=== PATIENT | female | born 1960 | race Caucasian/White ===

== ENCOUNTER → 2019-07-20 13:36 | Outpatient (CLI) | payer MEDICAID, SELFPAY ==
--- NOTE | 2019-07-20 | US_ITS ---
PROCEDURE: MM DIG MAMM BI DX W/CAD CLINICAL INDICATION: rt breast abscess The COMPARISON: US BREAST RT COMPLETE from 07/20/2019 US BREAST LT COMPLETE from 07/20/2019 TECHNIQUE: Standard images are performed along with bilateral spot compression views and bilateral breast ultrasound. FINDINGS: Unfortunately, old films have been purged and are unavailable for review. Average fibroglandular tissue. Right breast: There is a persistent area of nodularity at 7 mm involving the upper inner aspect of the right breast. This area did not completely compress out but had a somewhat unusual appearance on the mL view somewhat curvilinear. Ultrasound failed to demonstrate a cystic nodule at this area. There is some thickening in the retroareolar region on the right. A cluster of calcifications that are noted in the medial aspect of the right breast which appear benign with central lucencies. Left breast: There is a well-circumscribed 12 mm subareolar nodule. Benign-appearing calcifications are present in the left breast. Small cluster of calcifications noted in the inferior medial aspect of the left breast which appear benign Right breast ultrasound: There was a persistent somewhat lobular area of isoechoic bessie of the just below the nipple on the right which upon further inspection appear to represent part of the nipple instead of a nodule. This was difficult to ascertain. No abscess was evident. Left breast ultrasound: There was a subareolar nodular density on the mammogram. At 12 o'clock behind the nipple there was a 1 cm well-circumscribed nodular area with some low level echoes. This appears benign and shows in hands through transmission of sound. IMPRESSION: There is an indeterminate nodule in the upper inner aspect of the right breast without a sonographic correlate. Recommend stereotactic biopsy for further evaluation. There are bilateral subareolar nodules which are probably benign. These do not appear to represent abscesses. Possible papillomas or fibroadenomas. There was question at 1 point during the study if these represented inverted nipples but was not felt to be the case. Fine-needle aspiration could be performed of these for further diagnosis. BI-RAD Category: 4 Suspicious Abnormality - Biopsy Considered bilateral FOLLOW-UP: BIO Biopsy Recommended Dictated by: Shay Berrios MD 07/21/2019 16:37 Electronically signed by Shay Berrios MD in [place] 07/21/2019 16:37
== END ==
PROVIDERS: PCP Internal Medicine; Visit Provider Surgery
DX: N61.1 Abscess of the breast and nipple (principal)
CPT/HCPCS: 76641; 77066

== ENCOUNTER → 2019-08-20 08:49 | Outpatient (CLI) | payer OTHER, SELFPAY ==
--- NOTE | 2019-08-20 | US_ITS ---
PROCEDURE: US FNA BREAST CLINICAL INDICATION: Bilateral abnormal breast ultrasound. Chronic drainage with abscess behind the right nipple COMPARISON: US BREAST RT COMPLETE from 07/20/2019 US BREAST LT COMPLETE from 07/20/2019 US FNA BREAST from 08/20/2019 FINDINGS: Following obtaining informed consent under aseptic conditions and local anesthesia with 1 percent buffered lidocaine fine needle aspiration is performed with sonographic guidance of the previously noted sonographic abnormalities in both retroareolar regions. The patient tolerated the procedure well without evidence of immediate complication. On the right there was minimal amount of grayish aspirate obtained. The hypoechoic area did appear to communicate with the skin surface. The minimal aspirate was sent for cytology and culture and sensitivity. Cytology of the right FNA: Atypical cells with focal spindle features are present FNA performed on the left without complication. The nodule was slightly smaller after the FNA on the left. Cytology of the left FNA: Negative for malignant cells IMPRESSION: Status post bilateral breast FNA in the retroareolar region as described above. No immediate complication. Cytology on the right was atypical. Cytology on the left was negative for malignant cells. Dictated by: Shay Berrios MD 08/28/2019 08:56 Electronically signed by Shay Berrios MD in [place] 08/28/2019 08:56
--- NOTE | 2019-08-20 08:55 | MM_ITS ---
PROCEDURE: MM STEREOTACTIC LOC RT CLINICAL INDICATION: Rt breast lesion COMPARISON: MM DIG MAMM BI DX W/CAD from 07/20/2019 US FNA BREAST from 08/20/2019 TECHNIQUE: Following obtaining informed consent and time-out procedures, the patient was placed in the stereotactic unit and the area of interest localized per routine protocol. Under aseptic conditions and local anesthesia with 1 percent lidocaine and deeper anesthesia with lidocaine mixed with epinephrine, skin sky was performed and mammography needle inserted and deemed to be in satisfactory position. Multiple mammotome E cores were obtained with post biopsy images showing defect in the expected location of the biopsy. A sterile non ferromagnetic clip was then placed and deemed to be in satisfactory position. The patient tolerated the procedure well without evidence of immediate complications and left radiology suite in stable condition. FINDINGS: Pathology: Stromal fibrosis and focal fat necrosis. No atypia or carcinoma Post biopsy mammogram demonstrates post biopsy changes involving the medial and upper aspect of the right breast in the area of the previously noted abnormality with clips present. IMPRESSION: Successful stereotactic directed biopsy of the right breast showing benign findings. Recommend six-month mammographic follow-up of the right breast per routine protocol. BI-RAD Category: 2 Benign Finding(s) FOLLOW-UP: 6M 6Month Follow-up (A letter has been sent to the patient regarding results of the study.) Dictated by: Shya Berrios MD 08/28/2019 08:47 Electronically signed by Shay Berrios MD in [place] 08/28/2019 08:47
--- NOTE | 2019-08-20 12:00 | MM_ITS ---
PROCEDURE: MM CLIP PLACEMENT RT CLINICAL INDICATION: RT BREAST MASS COMPARISON: MM DIG MAMM BI DX W/CAD from 07/20/2019 MM STEREOTACTIC LOC RT from 08/20/2019 TECHNIQUE: Standard CC and MLO images were obtained. R2 CAD reviewed. FINDINGS: Post biopsy changes are present in the upper inner aspect of the right breast with clip at that region which is the area of the previously noted mammographic abnormality. IMPRESSION: BI-RAD Category: 2 Benign Finding(s) FOLLOW-UP: 6M 6Month Follow-up (A letter has been sent to the patient regarding results of the study.) Dictated by: Shay Berrios MD 08/21/2019 09:10 Electronically signed by Shay Berrios MD in [place] 08/28/2019 08:50
== END ==
PROVIDERS: PCP Internal Medicine; Visit Provider Surgery
DX: N63.10 Unspecified lump in the right breast, unspecified quadrant (principal); N61.1 Abscess of the breast and nipple
CPT/HCPCS: 19081; 76942; 77065; 87070; 87205; 88305

== ENCOUNTER → 2021-10-20 16:54 | Outpatient (CLI) | payer OTHER, SELFPAY ==
[2021-10-20 17:32] LABS: Basophils # 0.1 K/mm3 (0-0.2); Basophils % 0.7 % (0.1-2.0); Eosinophils # 0.3 K/mm3 (0.0-0.4); Eosinophils % 2.4 % (0.1-12.0); Hematocrit 45.2 % (37.0-47.0); Hemoglobin 15.4 g/dL (12.2-16.2); Lymphocytes # 2.7 K/mm3 (0.7-4.5); Lymphocytes % 24.2 % (10-50); Mean Corpuscular Hemoglobin 32.2 pg (27.0-31.2); Mean Corpuscular Volume 94.6 fl (81-99); Mean Platelet Volume 11.6 fl (7.4-10.4); Monocytes # 0.7 K/mm3 (0.1-1.0); Monocytes % 6.2 % (1.7-9.3); Neutrophils # 7.4 K/mm3 (1.8-7.8); Neutrophils % 66.5 % (37.0-80.0); Platelet Count 295 K/mm3 (142-424); Red Blood Count 4.78 M/mm3 (4.20-5.40); Red Cell Distribution Width 12.4 % (11.5-17.5); White Blood Count 11.2 K/mm3 (4.8-10.8)
[2021-10-20 17:40] LABS: Creatinine,Urine Random 136 mg/dL (Not Estab.)
[2021-10-20 17:44] LABS: Microalbumin/Creatinine Ratio 7.1
[2021-10-20 17:58] LABS: Erythrocyte Sedimentation Rate 25 mm/hr (0-30)
[2021-10-20 18:12] LABS: Hemoglobin A1C 7.3 % (4.0-6.0)
[2021-10-20 18:29] LABS: Alanine Aminotransferase 22 U/L (12-78); Albumin Level 4.2 g/dl (3.5-5.0); Albumin/Globulin Ratio 1.4 (1.1-1.8); Alkaline Phosphatase 115 U/L (38-126); Anion Gap 11.9 mEq/L (5-15); Aspartate Amino Transferase 27 U/L (14-36); Bilirubin,Total 0.5 mg/dl (0.2-1.3); Blood Urea Nitrogen 12 mg/dl (7-17); Calcium 9.3 mg/dl (8.4-10.2); Carbon Dioxide 29 mmol/L (22.0-30.0); Chloride 101 mmol/L (98-107); Chol/HDL Ratio 5.4 (1-3.5); Cholesterol 253 mg/dl (140-200); Estimated Glomerular Filt Rate 101 ml/min (>60); GFR (African American) 122 ML/MIN (>60); Globulin 3.1 g/dL (1.3-3.2); Glucose 108 mg/dl (74-100); HDL Cholesterol 47 mg/dl (40-60); Potassium 4.9 mmoL/L (3.5-5.1); Sodium 137 mmol/L (136-145); Total Protein,Serum 7.3 g/dl (6.3-8.2); Triglycerides 153 mg/dl (30-150); VLDL Cholesterol 31 mg/dL (0-40)
[2021-10-20 18:40] LABS: Direct LDL Cholesterol 190.12 mg/dL (100-129)
[2021-10-20 19:34] LABS: Vitamin B12 409 pg/mL (239-931)
[2021-10-20 19:36] LABS: Folate 5.87 ng/mL
== END ==
PROVIDERS: Visit Provider Internal Medicine
DX: E11.42 Type 2 diabetes mellitus with diabetic polyneuropathy (principal); E78.5 Hyperlipidemia, unspecified; I10 Essential (primary) hypertension; Z79.84 Long term (current) use of oral hypoglycemic drugs
CPT/HCPCS: 80053; 80061; 82043; 82570; 82607; 82746; 83036; 85025; 85651

== ENCOUNTER → 2022-04-23 12:29 | Outpatient (CLI) | payer OTHER, SELFPAY ==
[2022-04-23 14:04] LABS: Chloride 104 mmol/L (98-107); Sodium 137 mmol/L (136-145)
[2022-04-23 14:05] LABS: Potassium 4.5 mmoL/L (3.5-5.1)
[2022-04-23 14:07] LABS: Alanine Aminotransferase 29 U/L (12-78); Albumin/Globulin Ratio 1.3 (1.1-1.8); Alkaline Phosphatase 120 U/L (38-126); Anion Gap 10.5 mEq/L (5-15); Aspartate Amino Transferase 29 U/L (14-36); Bilirubin,Total 0.5 mg/dl (0.2-1.3); Blood Urea Nitrogen 8 mg/dl (7-17); Carbon Dioxide 27 mmol/L (22.0-30.0); Cholesterol 286 mg/dl (140-200); Estimated Glomerular Filt Rate 124 ml/min (>60); GFR (African American) 150 ML/MIN (>60); Globulin 3.2 g/dL (1.3-3.2); Total Protein,Serum 7.2 g/dl (6.3-8.2); Triglycerides 150 mg/dl (30-150); VLDL Cholesterol 30 mg/dL (0-40)
[2022-04-23 14:08] LABS: Calcium 9.1 mg/dl (8.4-10.2); Glucose 132 mg/dl (74-100); HDL Cholesterol 41 mg/dl (40-60)
[2022-04-23 14:18] LABS: Direct LDL Cholesterol 208.27 mg/dL (100-129)
[2022-04-23 15:04] LABS: Hemoglobin A1C 8.1 % (4.0-6.0)
== END ==
PROVIDERS: PCP Internal Medicine; Visit Provider Internal Medicine
DX: E11.42 Type 2 diabetes mellitus with diabetic polyneuropathy (principal); E78.5 Hyperlipidemia, unspecified; I10 Essential (primary) hypertension; Z79.84 Long term (current) use of oral hypoglycemic drugs
CPT/HCPCS: 80053; 80061; 83036

== ENCOUNTER 2022-06-16 10:50 | Emergency (ER) | payer OTHER, SELFPAY ==
--- NOTE | 2022-06-16 11:30 | HMH.EDUTC ---
[facility] [place] Clinical Impression: Strep throat Disposition: Home, Self-Care Condition on Discharge: Good Instructions: Strep Throat, DI for Strep Throat Additional Instructions: Drink plenty of fluids. Take tylenol or ibuprofen for pain or fever. Take the medications as directed. Follow up with your regular doctor. GO TO THE ER FOR ANY WORSENING SYMPTOMS Throw your tooth brush away and get a new one. Prescriptions: Amoxicillin [Amoxicillin 875MG Tab] 875 mg PO Q12H #20 tab Transmission Status: Received by [facility] methylPREDNISolone [Medrol] 4 mg PO DIRECTED 6 Days #21 packet Transmission Status: Received by [facility] Nystatin [Nystatin Susp 500,000 Units/5mL Udc] 5 ml PO QID 10 Days #200 ml Transmission Status: Received by [facility] Referrals: Luis Antonio Gorman MD [Primary Care Provider] - Time of Disposition: 11:55 Medical Decision Making - Medical Records Medical records reviewed: No: I reviewed the patient's medical records. - Jayden Inquiry Pt receiving controlled substance: No Vital Signs: 06/16/22 11:39 06/16/22 11:57 Temperature 97.7 F 97.7 F Temperature Source Oral Pulse Rate 90 Pulse Rate [Left] 90 Respiratory Rate 16 16 Blood Pressure 166/97 H Blood Pressure [Right Arm] 166/97 H Blood Pressure Mean [Right Arm] 120 02 Sat by Pulse Oximetry 97 - Lab Data Lab results reviewed: Yes: I reviewed the patient's lab results. Lab Results 06/16/22 11:30: Strep Scn Rapid Clinic Positive A [facility] [place] HPI - General Stated complaint: Sore throat Time Seen by Provider: 06/16/22 11:30 - History of Present Illness Provider Complaint: She c/o sore throat for the past 2 days. - Related Data Home Medications Medication Instructions Recorded Confirmed rosuvastatin 20 mg tablet 20 mg PO ONCE 02/18/18 09/01/19 metformin 500 mg tablet 500 mg PO BID 07/28/19 09/01/19 naproxen sodium 220 mg tablet 220 mg PO Q8H 07/28/19 09/01/19 Previous Rx's Medication Instructions Recorded Amoxicillin [Amoxicillin 875MG 875 mg PO Q12H #20 tab 06/16/22 Tab] Nystatin [Nystatin Susp 500,000 5 ml PO QID 10 Days #200 ml 06/16/22 Units/5mL Udc] methylPREDNISolone [Medrol] 4 mg PO DIRECTED 6 Days #21 06/16/22 packet Allergies Allergy/AdvReac Type Severity Reaction Status Date / Time Sulfa (Sulfonamide Allergy Unknown SICK Verified 06/16/22 11:41 Antibiotics) [facility] History - Hepatitis A Screen Attestation statement:: This patient has been screened for Hepatitis A risk factors. I have reviewed the patient's past medical history: Yes Medical History: Reports:: Hyperlipidemia Denies:: Diabetes Mellitus Type 1, Diabetes Mellitus Type 2, Internal Pacemaker, Lung Disease, Seizures Laterality Cases: Bilateral: Breast Biopsy, Other Other Surgeries: Yes: Cholecystectomy, Other. No: Pacemaker Comment: rt breast excision - Social History Smoking Status: Current every day smoker Alcohol Intake: never Substance Use Type: denies use Occupational Status: retired Family Hx:: No significant family history ROS Obtained: Yes All systems reviewed & no additional complaints - Constitutional Constitutional: Reports as per HPI - Eyes Eyes: Denies eye discharge - ENT Ears, Nose, Mouth, and Throat: Reports as per HPI - Cardiovascular Cardiovascular: Denies chest pain - Respiratory Respiratory: Denies chest congestion - Gastrointestinal Gastrointestingal: Reports: nausea. Denies: abdominal pain, diarrhea, vomiting Physical Exam - General General appearance: alert, in no apparent distress - Head Head exam: atraumatic, normocephalic, normal inspection - Eye Eye exam: Present: normal appearance, PERRL, EOMI - ENT ENT exam: Present: mucous membranes moist, normal external ear exam - Expanded ENT Exam TM/Canal exam: Bilateral TM: erythema, bulging Nose exam: Absent: sinus tenderness Nasal speculum e
[2022-06-16 11:38] LABS: UTC Strep Screen (Rapid) Positive (Negative)
[2022-06-16 11:39] VITALS: BP 166/97; PULSE 90; RESP 16; TEMP 36.5; O2SAT 97; BMI 28.6
[2022-06-16 11:57] VITALS: BP 166/97; PULSE 90; RESP 16; TEMP 36.5
== END 2022-06-16 12:07 | disposition home or self-care (01) ==
PROVIDERS: Emergency Provider Nurse Practitioner Family; PCP Internal Medicine
DX: J02.0 Streptococcal pharyngitis (principal); F17.200 Nicotine dependence, unspecified, uncomplicated
CPT/HCPCS: 87880; 99212; G0463

== ENCOUNTER → 2023-06-14 11:24 | Outpatient (CLI) | payer OTHER, MEDICARE, SELFPAY ==
[2023-06-14 13:05] LABS: Creatinine,Urine Random 51 mg/dL (Not Estab.)
[2023-06-14 13:09] LABS: Basophils # 0.1 K/mm3 (0-0.2); Basophils % 0.4 % (0.1-2.0); Eosinophils # 0.1 K/mm3 (0.0-0.4); Eosinophils % 0.5 % (0.1-12.0); Lymphocytes # 1.8 K/mm3 (0.7-4.5); Mean Corpuscular HGB Conc 31.4 g/dL (31.8-35.4); Mean Corpuscular Hemoglobin 30.5 pg (27.0-31.2); Mean Corpuscular Volume 97.3 fl (81-99); Mean Platelet Volume 9.9 fl (7.4-10.4); Monocytes # 0.6 K/mm3 (0.1-1.0); Monocytes % 4.2 % (1.7-9.3); Neutrophils # 12.4 K/mm3 (1.8-7.8); Neutrophils % 82.9 % (37.0-80.0); Platelet Count 267 K/mm3 (142-424); Red Blood Count 5.24 M/mm3 (4.20-5.40); Red Cell Distribution Width 12.7 % (11.5-17.5); White Blood Count 14.9 K/mm3 (4.8-10.8)
[2023-06-14 13:10] LABS: Microalbumin < 6.000 mg/L (0-16.7)
[2023-06-14 13:37] LABS: Chloride 105 mmol/L (98-107); Potassium 5.3 mmoL/L (3.5-5.1); Sodium 141 mmol/L (136-145)
[2023-06-14 13:40] LABS: Alanine Aminotransferase 21 U/L (12-78); Albumin/Globulin Ratio 1.1 (1.1-1.8); Alkaline Phosphatase 137 U/L (38-126); Anion Gap 13.3 mEq/L (5-15); Aspartate Amino Transferase 24 U/L (14-36); Bilirubin,Total 0.5 mg/dl (0.2-1.3); Blood Urea Nitrogen 14 mg/dl (7-17); Carbon Dioxide 28 mmol/L (22.0-30.0); Cholesterol 297 mg/dl (140-200); Estimated Glomerular Filt Rate 124 ml/min (>60); GFR (African American) 150 ML/MIN (>60); Globulin 3.6 g/dL (1.3-3.2); Total Protein,Serum 7.6 g/dl (6.3-8.2); Triglycerides 193 mg/dl (30-150); VLDL Cholesterol 39 mg/dL (0-40)
[2023-06-14 13:41] LABS: Calcium 9.7 mg/dl (8.4-10.2); Chol/HDL Ratio 6.2 (1-3.5); Glucose 94 mg/dl (74-100); HDL Cholesterol 48 mg/dl (40-60)
[2023-06-14 13:51] LABS: Direct LDL Cholesterol 190.36 mg/dL (100-129)
== END ==
PROVIDERS: PCP Internal Medicine; Visit Provider Internal Medicine
DX: E11.42 Type 2 diabetes mellitus with diabetic polyneuropathy (principal); I10 Essential (primary) hypertension; E78.5 Hyperlipidemia, unspecified; Z78.9 Other specified health status; Z79.84 Long term (current) use of oral hypoglycemic drugs
CPT/HCPCS: 80053; 80061; 82043; 82570; 83036; 85025

== ENCOUNTER 2023-06-27 00:55 | Emergency (ER) | payer MEDICARE, SELFPAY ==
[2023-06-27 01:11] VITALS: BP 126/78; PULSE 99; RESP 18; TEMP 36.7; O2SAT 99; BMI 29.7
--- NOTE | 2023-06-27 01:23 | HMH.EDGENADL ---
Discharge Plan Disposition Patient Disposition: Home, Self-Care Condition: Good Prescriptions Prescriptions: New ondansetron HCl 4 mg tablet 4 mg PO Q8H PRN (Reason: nausea and vomiting) 5 Days Qty: 30 0RF No Action rosuvastatin 20 mg tablet 20 mg PO ONCE metformin 500 mg tablet 500 mg PO BID naproxen sodium [Aleve] 220 mg tablet 220 mg PO Q8H amoxicillin 875 MG tablet 875 mg PO Q12H Qty: 20 0RF methylprednisolone 4 MG tablets,dose pack 4 mg PO DIRECTED 6 Days Qty: 21 0RF nystatin 500,000 UNIT/5 ML suspension 5 ml PO QID 10 Days Qty: 200 0RF Referrals Follow up/Referrals: Luis Antonio Gorman MD [Primary Care Provider] - See instructions Clinical Impressions Clinical Impression: Leukocytosis, Nausea vomiting and diarrhea Instructions Patient Instructions: DI for Acute Abdominal Pain Discharge ED Provider: Ramesh Medina General Adult HPI General Chief complaint: Abdominal Pain Stated complaint: took sugar shot, abd pain, diarrhea Time Seen by Provider: 06/27/23 01:02 Mode of Arrival: Ambulatory Source of Information: Patient Limitations: No Limitations Description of Symptoms (Recalled from ER Triage Doc. by RN): pt states she had her first dose of ozempic on 06/24. pt states ever since she has been sick. pt c/o N/V/D, abd pain, tenderness bilaterally in her lower quads and epigasteric areas. pt states she spoke with Dr. Gorman office yesterday and he was going to call her in [place] but she has not picked it up yet. History of Present Illness HPI narrative: 63-year-old female history of type 2 diabetes presents with abdominal pain nausea vomiting dry heaves and diarrhea since Saturday when she received her first dose of Ozempic. She reports I am never doing that again . She also reports mild abdominal distention and feels like she is full of gas. She denies any fevers chills. Reports that she is able to tolerate p.o. but only a little bit. Related Data Home Medications Medication Instructions Recorded Confirmed rosuvastatin 20 mg tablet 20 mg PO ONCE Cholesterol 02/18/18 09/01/19 metformin 500 mg tablet 500 mg PO BID 07/28/19 09/01/19 naproxen sodium 220 mg tablet 220 mg PO Q8H 07/28/19 09/01/19 (Deyanira) Previous Rx's Medication Instructions Recorded amoxicillin 875 mg tablet 875 mg PO Q12H #20 tabs 06/16/22 methylprednisolone 4 mg tablets in 4 mg PO DIRECTED 6 days #21 06/16/22 a dose pack packets nystatin 100,000 unit/mL oral 5 ml PO QID 10 days #200 mL 06/16/22 suspension ondansetron HCl 4 mg tablet 4 mg PO Q8H PRN nausea and 06/27/23 vomiting 5 days #30 tabs Allergies Allergy/AdvReac Type Severity Reaction Status Date / Time Sulfa (Sulfonamide Allergy Unknown SICK Verified 06/16/22 11:41 Antibiotics) [facility] Disclaimer: The information contained in this section may have been updated after the patient was seen, as this information can be updated by other users. Surgical History (Updated 06/27/23 @ 01:16 by Leelee Hendrix RN) Hx of cholecystectomy Social History Smoking Status: Current every day smoker alcohol intake: never substance use type: denies use current occupational status: retired Travel in the last 8 weeks: None caffeine: No ROS Obtained: Yes All systems reviewed & no additional complaints except as documented Physical Exam General General appearance: alert and in no apparent distress Head Head exam: atraumatic and normocephalic Eye Eye exam: Present normal appearance, PERRL and EOMI ENT ENT exam: Present normal oropharynx and normal external ear exam Neck Neck exam: Present normal inspection and full ROM Chest Chest inspection: Present normal inspection and symmetric chest wall rise; Absent tenderness Respiratory Respiratory exam: Present normal lung sounds bilaterally; Absent respiratory distress Cardiovascular Cardiovascular exam: Present regular rate and normal rhythm Abdominal
[2023-06-27 01:29] LABS: Basophils # 0.1 K/mm3 (0-0.2); Basophils % 0.3 % (0.1-2.0); Eosinophils # 0.2 K/mm3 (0.0-0.4); Eosinophils % 0.9 % (0.1-12.0); Hematocrit 51.4 % (37.0-47.0); Hemoglobin 16.5 g/dL (12.2-16.2); Lymphocytes # 2.1 K/mm3 (0.7-4.5); Lymphocytes % 12.3 % (10-50); Mean Corpuscular Hemoglobin 30.8 pg (27.0-31.2); Mean Corpuscular Volume 96.1 fl (81-99); Mean Platelet Volume 8.4 fl (7.4-10.4); Monocytes % 5.8 % (1.7-9.3); Neutrophils # 13.9 K/mm3 (1.8-7.8); Neutrophils % 80.6 % (37.0-80.0); Platelet Count 251 K/mm3 (142-424); Red Blood Count 5.34 M/mm3 (4.20-5.40); Red Cell Distribution Width 12.5 % (11.5-17.5); White Blood Count 17.2 K/mm3 (4.8-10.8)
[2023-06-27 01:31] LABS: Alanine Aminotransferase 53 U/L (12-78); Albumin Level 4.3 g/dl (3.5-5.0); Albumin/Globulin Ratio 1.1 (1.1-1.8); Alkaline Phosphatase 117 U/L (38-126); Anion Gap 15.6 mEq/L (5-15); Aspartate Amino Transferase 37 U/L (14-36); Bilirubin,Total 0.9 mg/dl (0.2-1.3); Blood Urea Nitrogen 10 mg/dl (7-17); Calcium 9.2 mg/dl (8.4-10.2); Carbon Dioxide 23 mmol/L (22.0-30.0); Chloride 103 mmol/L (98-107); Creatinine Clearance Estimated 72 mL/min (50-200); Estimated Glomerular Filt Rate 100 ml/min (>60); GFR (African American) 121 ML/MIN (>60); Globulin 3.9 g/dL (1.3-3.2); Glucose 145 mg/dl (74-100); Lipase 48 U/L (23-300); MANUAL DIFFERENTIAL MANUAL DIFFERENTIAL (MANUAL DIFF); Potassium 3.6 mmoL/L (3.5-5.1); Sodium 138 mmol/L (136-145); Total Protein,Serum 8.2 g/dl (6.3-8.2)
[2023-06-27 01:45] VITALS: BP 110/64; PULSE 88; RESP 16; TEMP 36.9
[2023-06-27 02:11] LABS: Lymphocytes % 14 % (10-50); Monocytes % 1 % (2-9); Neutrophils % 84 % (42-76); Platelet Estimate Normal; RBC Morphology Normal; Total Cells Counted 100
== END 2023-06-27 01:52 | disposition home or self-care (01) ==
PROVIDERS: Emergency Provider Emergency Medicine; PCP Internal Medicine
DX: R10.9 Unspecified abdominal pain (principal); R11.2 Nausea with vomiting, unspecified; R19.7 Diarrhea, unspecified; D72.829 Elevated white blood cell count, unspecified; E11.9 Type 2 diabetes mellitus without complications; F17.210 Nicotine dependence, cigarettes, uncomplicated; Z79.84 Long term (current) use of oral hypoglycemic drugs
CPT/HCPCS: 80053; 83690; 85007; 85025; 96361; 96374; 99284; J2405

== ENCOUNTER → 2023-10-07 10:37 | Outpatient (CLI) | payer MEDICARE, SELFPAY ==
--- NOTE | 2023-10-07 10:41 | XR_ITS ---
FINAL REPORT CLINICAL HISTORY: LBP W/SCIATICA COMPARISON: None FINDINGS: 5 views of the lumbar spine were obtained. There is no evidence of fracture or dislocation. The vertebral alignment is normal. Moderate degenerative change is present with multilevel osteophytes. Vascular calcifications are identified. IMPRESSION: Moderate degenerative change is present without acute bony abnormality. Reviewed, Interpreted and Dictated by Fabián Sanchez III, MD Transcribed by Aminata Melissa Authenticated and [facility]
== END ==
PROVIDERS: PCP Internal Medicine; Visit Provider Internal Medicine
DX: M54.41 Lumbago with sciatica, right side (principal)
CPT/HCPCS: 72110

== ENCOUNTER 2024-04-17 08:58 | Emergency (ER) | payer MEDICARE, SELFPAY ==
[2024-04-17] VITALS (8 sets, daily range): BP systolic 151–192; BP diastolic 91–113; PULSE 79–89; RESP 18; TEMP 36.6–36.9; O2SAT 95–98; BMI 27.6
--- NOTE | 2024-04-17 09:03 | ED_ITS ---
Discharge Plan Disposition Patient Disposition: Home, Self-Care Condition: Good Prescriptions Prescriptions: No Action rosuvastatin 20 mg tablet 20 mg PO ONCE metformin 500 mg tablet 500 mg PO BID naproxen sodium [Aleve] 220 mg tablet 220 mg PO Q8H dapagliflozin propanediol [Farxiga] 5 mg tablet 5 mg PO DAILY Qty: 30 2RF prednisone 10 mg tablet 10 mg PO DIRECTED Qty: 32 0RF Rx Instructions: see taper instructions: 4 tabs po qam x 5 days; 3 tabs po qam x 2 days; 2 tabs po qam x 2 days; 1 tab po qam x 2 days; then stop ondansetron HCl 4 mg tablet 4 mg PO Q8H PRN (Reason: nausea and vomiting) 5 Days Qty: 30 0RF amoxicillin 875 MG tablet 875 mg PO Q12H Qty: 20 0RF methylprednisolone 4 MG tablets,dose pack 4 mg PO DIRECTED 6 Days Qty: 21 0RF nystatin 500,000 UNIT/5 ML suspension 5 ml PO QID 10 Days Qty: 200 0RF Referrals Follow up/Referrals: Luis Antonio Gorman MD [Primary Care Provider] - See instructions Activity Restrictions/Add. Instructions Additional Instructions/Restrictions: As we discussed, we did a trigger point injection with numbing medication that should continue to last for several hours. There was also a small amount of steroid in there, for this reason, please keep a very close eye on your blood sugar and stay hydrated. Please also continue to monitor your blood pressure closely. Please return with any new or worsening symptoms. Clinical Impressions Clinical Impression: Acute neck pain Discharge ED Provider: Evans Florentino General Adult HPI General Chief complaint: PAIN Stated complaint: neck pain Time Seen by Provider: 04/17/24 09:03 History of Present Illness HPI narrative: The patient presents with a chief complaint of left-sided neck pain, which has been an ongoing issue for years. The pain is described as nagging and dull, located in the middle of the neck and radiating down the shoulder. She reports that the pain is exacerbated by sleeping with the neck in a crooked position. There is no numbness, tingling, or weakness in the arms or legs, and the pain does not shoot down the arm. The patient has a history of receiving steroid injections for this issue, which have been helpful in the past. She also takes prednisone, but only in small doses (5-10 mg) due to experiencing a \ rushing\ sensation when taking larger amounts. The prednisone typically lasts for two to three months. The patient has taken her usual medications today, including two ibuprofens, ananda apentin, half a prednisone tablet, and some vitamins. She also has a history of hypertension and is on losartan, which she takes at 11 o'clock. Additionally, the patient has a diagnosis of diabetes. Please note that above description of symptoms, in this electronic medical record under categorization of recalled from ER triage doctor by RN are reflective of an initial nursing assessment, however, is not reflective of my full history and physical exam that was personally taken and clarified. Consequentially, this preceding description of symptoms, which may include the patient's categorized chief complaint in the EMR, do not reflect my personal clinical impression, and the ultimate description of history of present illness and patient stated complaints should be deferred to this section of the note. Unless stated otherwise or congruent with this section of the note, additional signs, symptoms, or incongruence should be interpreted as inaccurate with my clinical impression. Related Data Home Medications Medication Instructions Recorded Confirmed rosuvastatin 20 mg tablet 20 mg PO ONCE Cholesterol 02/18/18 09/01/19 metformin 500 mg tablet 500 mg PO BID 07/28/19 09/01/19 naproxen sodium 220 mg tablet 220 mg PO Q8H 07/28/19 09/01/19 (Aleve) Previous Rx's Medication Instructions Recorded amoxicillin 875 mg tablet 875 mg PO Q12H #20 tabs 06/16/22 methylprednisolone 4 mg tablets in 4 mg PO DIRECTED 6 days #21 06/16/22 a dose pack packets nystatin 100,000 unit/mL oral 5 ml PO QID 10 days #200 mL 06/16/22 suspension ondansetron HCl 4 mg tablet 4 mg PO Q8H PRN nausea and 06/27/23 vomiting 5 days #30 tabs dapagliflozin propanediol 5 mg 5 mg PO DAILY #30 tabs 04/07/24 tablet (Farxiga) prednisone 10 mg tablet 10 mg PO DIRECTED #32 tabs 04/13/24 Allergies Allergy/AdvReac Type Severity Reaction Status Date / Time Sulfa (Sulfonamide Allergy Unknown SICK Verified 06/16/22 11:41 Antibiotics) [facility] Disclaimer: The information contained in this section may have been updated after the patient was seen, as this information can be updated by other users. Surgical History (Updated 06/27/23 @ 01:16 by Leelee Hendrix RN) Hx of cholecystectomy Social History Smoking Status: Current every day smoker alcohol intake: never substance use type: denies use current occupational status: retired Travel in the last 8 weeks: None caffeine: No ROS Obtained: Yes other As per HPI Physical Exam General General appearance: alert and in no apparent distress Head Head exam: atraumatic and normocephalic Eye Eye exam: Present normal appearance Neck Neck exam: Present normal inspection Chest Chest inspection: Present normal inspection and symmetric chest wall rise Respiratory Respiratory exam: Present normal lung sounds bilaterally; Absent respiratory distress Cardiovascular Cardiovascular exam: Present regular rate and normal rhythm Abdominal Exam Abdominal exam: Present soft Neurological Exam Neurological exam: Present alert and oriented X3 Psychiatric Psychiatric exam: Present normal affect and normal mood Skin Skin exam: Present warm and dry Other Other exam information: Left-sided cervicals paraspinal tenderness to palpation, no overt midline cervical spinal tenderness to palpation, full strength and sensation in bilateral upper extremities. Medical Decision Making Medical Records Medical records reviewed: Yes I reviewed the patient's medical records. Jayden Inquiry Pt receiving controlled substance: No Vital Signs: 04/17/24 09:00 04/17/24 09:15 04/17/24 09:31 Temperature 98 F Temperature Source Oral Pulse Rate 82 86 Pulse Rate [Right] 89 Respiratory Rate 18 Blood Pressure 192/98 H 151/91 H Blood Pressure [Right Arm] 184/113 H Blood Pressure Mean Blood Pressure Mean [Right Arm] 136 02 Sat by Pulse Oximetry 98 97 97 Oxygen Delivery Method Room Air 04/17/24 09:45 04/17/24 10:00 04/17/24 10:15 Temperature Temperature Source Pulse Rate 79 79 Pulse Rate [Right] Respiratory Rate Blood Pressure 151/99 H 158/93 H Blood Pressure [Right Arm] Blood Pressure Mean 116 Blood Pressure Mean [Right Arm] 02 Sat by Pulse Oximetry 96 95 Oxygen Delivery Method 04/17/24 10:30 04/17/24 10:47 Temperature 98.4 F Temperature Source Oral Pulse Rate 79 84 Pulse Rate [Right] Respiratory Rate 18 Blood Pressure 161/99 H 158/93 H Blood Pressure [Right Arm] Blood Pressure Mean Blood Pressure Mean [Right Arm] 02 Sat by Pulse Oximetry 96 Oxygen Delivery Method Room Air Orders (Tests/Meds): ED MEDICATIONS Discontinued Medications Generic Name Dose Route Start Last Admin Trade Name Magdiel PRN Reason Stop Dose Admin Bupivacaine HCl 10 mg 04/17/24 09:19 04/17/24 09:36 Bupivacaine 0.25% 10ml Inj IJ 04/17/24 09:20 10 mg ONCE ONE Administration Dexamethasone Sodium Phosphate 4 mg 04/17/24 09:19 04/17/24 09:31 Dexamethasone 4mg/Ml 1ml Vial IM 04/17/24 09:20 4 mg ONCE ONE Administration Irbesartan 75 mg 04/17/24 09:19 04/17/24 10:03 Irbesartan 75mg Tablet PO 04/17/24 09:20 Not Given ONCE ONE Medical Decision Narrative: Patient with history and exam per above presenting for evaluation of paraspinal neck pain Diagnoses considered include radiculopathy, muscle strain, muscle sprain, no clinical evidence of fracture or acute neurologic deficit Patient was treated with trigger point injection with complete resolution of symptoms upon repeat evaluation. My clinical impression at this time is most consistent with acute on chronic paraspinal muscle pain I discussed my clinical impression with patient and answered all questions. At this time, the evidence for any other entities in the differential is insufficient to warrant any further testing or ED observation. This was explained to the patient. The patient was advised that persistent or worsening symptoms require further evaluation. I confirmed the patient's understanding of this discussion. Procedures Miscellaneous Procedure Procedure Performed: Trigger point injection was performed using 10 mL of 0.25% bupivacaine as well as 4 mg dexamethasone, the area was prepped and draped in usual sterile fashion. Point of maximal tenderness was identified. The muscle belly was palpated with visualization and aspiration of injection into muscle. Patient tolerated the procedure well. No immediate complications. Critical Care Critical Care Time Critical Care Time: No
[2024-04-17] MEDS: DEXAMETHASONE 4MG/ML 1ML VIAL 4 MG IM (09:31)
--- NOTE | 2024-04-17 09:32 | PC.NURSE ---
fsbs 214
--- NOTE | 2024-04-17 09:33 | PC.NURSE ---
FSBS is 214 at this time.
[2024-04-17] MEDS: BUPIVACAINE 0.25% 10ML INJ 10 MG IJ (09:36)
--- NOTE | 2024-04-17 10:20 | PC.NURSE ---
Dr. Florentino at bedside
== END 2024-04-17 10:51 | disposition home or self-care (01) ==
PROVIDERS: Emergency Provider Emergency Medicine; PCP Internal Medicine
DX: M53.82 Other specified dorsopathies, cervical region (principal); I10 Essential (primary) hypertension; E11.9 Type 2 diabetes mellitus without complications; Z79.84 Long term (current) use of oral hypoglycemic drugs; F17.210 Nicotine dependence, cigarettes, uncomplicated
CPT/HCPCS: 20552; 99284; J1100

== ENCOUNTER 2025-03-18 10:47 | Outpatient (CLI) | payer MEDICARE, SELFPAY | END 2025-03-18 23:59 | disposition home or self-care (01) | LOC: LAB.DROPOF 03-19 11:40 | PROVIDERS: PCP Nurse Practitioner; Visit Provider Nurse Practitioner | DX: R35.0 Frequency of micturition (principal) | CPT/HCPCS: 87086; 87088 ==

== ENCOUNTER 2025-03-29 10:27 | Outpatient (CLI) | payer MEDICARE, SELFPAY | END 2025-03-29 23:59 | disposition home or self-care (01) | LOC: LAB.DROPOF 03-30 10:29 | PROVIDERS: PCP Internal Medicine; Visit Provider Student in an Organized Health Care Education/Training Program | DX: R30.0 Dysuria (principal); N39.0 Urinary tract infection, site not specified; B96.20 Unspecified Escherichia coli [E. coli] as the cause of diseases classified elsewhere | CPT/HCPCS: 87086; 87088; 87186 ==

== ENCOUNTER 2025-03-30 08:12 | Observation (INO) | payer MEDICARE, OTHER, SELFPAY ==
[2025-03-30] VITALS (13 sets, daily range): BP systolic 109–144; BP diastolic 72–95; PULSE 80–119; RESP 13–20; TEMP 36.3–36.8; O2SAT 80–98; BMI 27.4; BMI 26.7
--- NOTE | 2025-03-30 08:21 | ECG_ITS ---
APPROVED REPORT Exam: Resting ECG HR:114 bpm ECG Measurements Heart Rate 114 AXES SC 156 P 75 QRSd 93 QRS 84 QT 340 T 55 QTc 407 Conclusion SINUS TACHYCARDIA Electronically signed by : JAN MARTIN, 03/31/2025 08:14:57
[2025-03-30 08:40] LABS: Lactate Venous 1.5 mmol/L (0.4-2.0); VBG Base Excess -2.7 mmol/L (-2.4-2.3); VBG HCO3 23.3 mmol/L (23-30); VBG Oxygen Saturation 42.7 % (50-70); VBG PCO2 46.1 mmol/L (35-51); VBG PH 7.32 mmol/L (7.31-7.41); VBG PO2 23.3 mmol/L (28-40); VBG Total CO2 24.7 mmol/L (23-27)
[2025-03-30 08:45] LABS: Basophils # 0.1 K/mm3 (0-0.2); Basophils % 0.4 % (0.1-2.0); Eosinophils # 0.2 Kmm3 (0.0-0.4); Hematocrit 47.4 % (37.0-47.0); Hemoglobin 15.2 g/dL (12.2-16.2); Immature Granulocytes # 0.11 10^3uL; Immature Granulocytes % 0.5 %; Lymphocytes # 0.8 K/mm3 (0.7-4.5); Lymphocytes % 3.6 % (10-50); Mean Corpuscular HGB Conc 32.1 g/dL (31.8-35.4); Mean Corpuscular Hemoglobin 31.5 pg (27.0-31.2); Mean Corpuscular Volume 98.1 fl (81-99); Mean Platelet Volume 10.5 fl (7.4-10.4); Monocytes # 1.2 K/mm3 (0.1-1.0); Monocytes % 5.3 % (1.7-9.3); Neutrophils # 19.9 K/mm3 (1.8-7.8); Neutrophils % 89.2 % (37.0-80.0); Nucleated Red Blood Cells # 0 10^3/uL; Nucleated Red Blood Cells % 0 %; Platelet Count 233 K/mm3 (142-424); Red Blood Count 4.83 M/mm3 (4.20-5.40); Red Cell Distribution Width 12.8 % (11.5-17.5); White Blood Count 22.3 K/mm3 (4.8-10.8)
[2025-03-30] MEDS: FAMOTIDINE 20MG/2ML VIAL 20 MG IV (08:47)
[2025-03-30] MEDS: IPRATROPIUM/ALBUTEROL 3 ML NEB 9 ML IH (08:47)
[2025-03-30] MEDS: METHYLPREDNISOLONE SOD SUCC 125MG VIAL 125 MG IV (08:48)
[2025-03-30] MEDS: diphenhydrAMINE 50MG/ML VIAL 25 MG IV (08:48)
[2025-03-30 08:52] LABS: Alanine Aminotransferase 19 U/L (12-78); Albumin Level 4.1 g/dl (3.5-5.0); Albumin/Globulin Ratio 1.3 (1.1-1.8); Alkaline Phosphatase 116 U/L (38-126); Anion Gap 10.2 mEq/L (5-15); Aspartate Amino Transferase 26 U/L (14-36); Bilirubin,Total 0.6 mg/dl (0.2-1.3); Blood Urea Nitrogen 16 mg/dl (7-17); Calcium 9.1 mg/dl (8.4-10.2); Carbon Dioxide 27 mmol/L (22.0-30.0); Chloride 107 mmol/L (98-107); Creatinine Clearance Estimated 65 mL/min (50-200); Estimated Glomerular Filt Rate 62 ml/min (>60); GFR (African American) 76 ML/MIN (>60); Globulin 3.2 g/dL (1.3-3.2); Glucose 192 mg/dl (74-100); Potassium 4.2 mmoL/L (3.5-5.1); Sodium 140 mmol/L (136-145); Total Protein,Serum 7.3 g/dl (6.3-8.2)
--- NOTE | 2025-03-30 08:56 | HMH.EDGENADL ---
Discharge Plan Disposition Patient Disposition: Admitted Chief Complaint: Allergic Reaction Prescriptions Prescriptions: No Action naproxen sodium [Aleve] 220 mg tablet 220 mg PO Q8H nitrofurantoin monohyd/m-cryst 100 mg capsule 100 mg PO Q12H 7 Days Qty: 14 0RF Rx Instructions: must administer with a meal/food fluconazole 150 mg tablet 150 mg PO Q3D Qty: 1 0RF albuterol sulfate 90 mcg/actuation HFA aerosol inhaler inhalation Patient Comments: INHALE TWO PUFFS BY MOUTH EVERY 6 HOURS NEEDED FOR wheezing cyclobenzaprine 5 mg tablet 5 mg PO HS MDD 1 PRN (Reason: muscle spasm) Qty: 30 1RF ofloxacin 0.3 % drops 10 drp otic (ear) DAILY 7 Days Qty: 10 0RF losartan 50 mg tablet 50 mg PO DAILY Qty: 90 1RF gabapentin 100 mg capsule 200 mg PO DAILY Qty: 60 2RF dapagliflozin propanediol [Farxiga] 5 mg tablet 5 mg PO DAILY Qty: 90 1RF Januvia 100 mg tablet 100 mg PO DAILY Qty: 90 1RF Referrals Follow up/Referrals: Luis Antonio Gorman MD [Primary Care Provider] - See instructions Clinical Impressions Clinical Impression: Sepsis, Pneumonia Print Language Print Language: Telugu Discharge ED Provider: Gamal Montoya General Adult HPI General Chief complaint: Allergic Reaction Stated complaint: SOA Time Seen by Provider: 03/30/25 08:17 Mode of Arrival: Ambulatory Source of Information: Patient and Relative Description of Symptoms (Recalled from ER Triage Doc. by RN): pt started new antibiotic yesterday for uti by ronak moy, took 2 pills yesterday and began feeling nervous shaky nauseated and short of air after taking second pill yesterday History of Present Illness HPI narrative: Please note that above description of symptoms, in this electronic medical record under categorization of recalled from ER triage doctor by RN are reflective of an initial nursing assessment, however, is not reflective of my full history and physical exam that was personally taken and clarified. Consequentially, this preceding description of symptoms, which may include the patient's categorized chief complaint in the EMR, do not reflect my personal clinical impression, and the ultimate description of history of present illness and patient stated complaints should be deferred to this section of the note. Unless stated otherwise or congruent with this section of the note, additional signs, symptoms, or incongruence should be interpreted as inaccurate with my clinical impression. Related Data Home Medications ?Medication ?Instructions ?Recorded ?Confirmed naproxen sodium 220 mg tablet 220 mg PO Q8H 07/28/19 03/29/25 (Aleve) albuterol sulfate 90 mcg/actuation inhalation 04/20/24 03/29/25 aerosol inhaler Previous Rx's ?Medication ?Instructions ?Recorded cyclobenzaprine 5 mg tablet 5 mg PO HS PRN muscle spasm #30 04/20/24 tabs losartan 50 mg tablet 50 mg PO DAILY #90 tabs 11/16/24 ofloxacin 0.3 % ear drops 10 drp otic (ear) DAILY 7 days #10 12/01/24 mL gabapentin 100 mg capsule 200 mg (2 x 100 mg) PO DAILY #60 12/29/24 caps dapagliflozin propanediol 5 mg 5 mg PO DAILY #90 tabs 12/31/24 tablet (Farxiga) sitagliptin phosphate 100 mg 100 mg PO DAILY #90 tabs 12/31/24 tablet (Januvia) fluconazole 150 mg tablet 150 mg PO Q3D 1 dose #1 tab 03/29/25 nitrofurantoin 100 mg PO Q12H 7 days #14 caps 03/29/25 monohydrate/macrocrystals 100 mg capsule Allergies Allergy/AdvReac Type Severity Reaction Status Date / Time Sulfa (Sulfonamide Allergy Unknown SICK Verified 03/29/25 10:21 Antibiotics) [facility] Disclaimer: The information contained in this section may have been updated after the patient was seen, as this information can be updated by other users. Medical History UTI (urinary tract infection) Surgical History Hx of cholecystectomy Social History Smoking Status: Current every day smoker alcohol intake: never substance use type: denies use current occupational status: retired Travel in the last 8 weeks?: None caffeine: No Have you lived/traveled outside [place] in past 30 days?: No Contact w/someone who lives/traveled outside [place] past 30 days?: No Exposure to someone with infectious disease in past 14 days?: No Do you have a fever (greater than 100.4 F or 38 C)?: No Have you tested positive for COVID-19?: No Exposed to someone with COVID-19 in past 14 days?: No Do you have a sore throat?: No Do you have a cough?: No Do you have any weakness?: No Do you have any diarrhea?: No Are you experiencing any unusual bleeding?: No Do you have any muscle aches/pain?: No Do you have any abdominal pain?: No Are you experiencing loss of taste or smell?: No Other Medical History Have you received the Flu Vaccine for this season: No Have you received the Pneumonia Vaccine: Yes ROS Obtained: Yes All systems reviewed & no additional complaints except as documented Physical Exam General General appearance: alert and in no apparent distress Head Head exam: atraumatic and normocephalic Eye Eye exam: Present normal appearance, PERRL and EOMI ENT ENT exam: Present other (No evidence of angioedema, stridor, or signs of abnormality. Speaking full sentences) Neck Neck exam: Present normal inspection, full ROM and trachea midline Respiratory Respiratory exam: Present prolonged expiratory phase and other (Speaking in full sentences, prolonged expiratory phase, quiet breath sounds bilaterally.); Absent respiratory distress, wheezes, stridor or accessory muscle use Cardiovascular Cardiovascular exam: Present normal rhythm, tachycardia, normal heart sounds and other (Pulses equal symmetric in upper and lower extremities) Abdominal Exam Abdominal exam: Present soft; Absent distention, tenderness or pulsatile mass Extremities Exam Extremities exam: Absent edema Neurological Exam Neurological exam: Present alert, oriented X3 and CN II-XII intact; Absent motor sensory deficit Skin Skin exam: Present warm and dry; Absent diaphoresis or erythema Medical Decision Making Medical Records Medical records reviewed: Yes I reviewed the patient's medical records. Screening: Per USPSTF and CDC recommendations, given the prevalence of disease in our region, it is our hospital?s policy to screen for HIV and viral Hepatitis for all patients aged 18 and over and those with ongoing risk factors. [place]den Inquiry Pt receiving controlled substance: No Jayden was queried for this patient: No Vital Signs: 03/30/25 08:18 03/30/25 08:24 03/30/25 08:31 Temperature 98.2 F Temperature Source Oral Pulse Rate Pulse Rate [Left Radial] 110 H Respiratory Rate 13 20 15 Blood Pressure 109/72 L 121/77 Blood Pressure [Right Arm] 109/72 L Blood Pressure Mean [Right Arm] 84 02 Sat by Pulse Oximetry 80 L 93 L Oxygen Delivery Method Room Air Nasal Cannula Oxygen Flow Rate (LPM) 2 03/30/25 10:30 03/30/25 11:00 Temperature Temperature Source Pulse Rate 116 H 119 H Pulse Rate [Left Radial] Respiratory Rate 15 16 Blood Pressure 136/93 H 144/95 H Blood Pressure [Right Arm] Blood Pressure Mean [Right Arm] 02 Sat by Pulse Oximetry 97 95 Oxygen Delivery Method Oxygen Flow Rate (LPM) Lab Data Lab Results 03/30/25 08:25: WBC 22.3 H*, RBC 4.83, Hgb 15.2, Hct 47.4 H, MCV 98.1, MCH 31.5 H, MCHC 32.1, RDW 12.8, Plt Count 233, MPV 10.5 H, Neut % (Auto) 89.2 H, Lymph % (Auto) 3.6 L, [place] % (Auto) 5.3, Eos % (Auto) 1.0, Baso % (Auto) 0.4, Neut # (Auto) 19.9 H, Lymph # (Auto) 0.8, [place] # (Auto) 1.2 H, Eos # (Auto) 0.2, Baso # (Auto) 0.1, PT 10.5, INR 0.94, APTT 27.8, D-Dimer 0.85 H, VBG pH 7.32, VBG pCO2 46.1, VBG pO2 23.3 L, VBG HCO3 23.3, VBG Total CO2 24.7, VBG O2 Saturation 42.7 L, VBG Base Excess -2.7 L, VBG Lactic Acid 1.5, Sodium 140, Potassium 4.2, Chloride 107, Carbon Dioxide 27, Anion Gap 10.2, BUN 16, Creatinine 0.90, Estimated Creat Clear 65, Estimated GFR 62, Est GFR ( Amer) 76, Glucose 192 H, Calcium 9.1, Total Bilirubin 0.6, AST 26, ALT 19, Alkaline Phosphatase 116, Troponin I < 0.01, NT-Pro-B Natriuret Pep 96.9, Total Protein 7.3, Albumin 4.1, Globulin 3.2, Albumin/Globulin Ratio 1.3 03/30/25 09:55: Urine Color Yellow, Urine Appearance Clear, Urine pH 5.5, Ur Specific [place] 1.015, Urine Protein Negative, Urine Glucose (UA) 3+, Urine Ketones 1+, Urine Blood Negative, Urine Nitrate Negative, Urine Bilirubin Negative, Urine Urobilinogen 0.2, Ur Leukocyte Esterase Negative, Urine RBC None, Urine WBC Occasional, Ur Squamous Epith Cells Occasional, Urine Bacteria Trace 03/30/25 08:25 03/30/25 08:25 Orders (Tests/Meds): ED MEDICATIONS Generic Name Dose Route Start Last Admin Trade Name Freq PRN Reason Stop Dose Admin Vancomycin/PEG/NADA/Lysine/Water 1.25 gm in 250 mls @ 125 mls/hr 03/30/25 11:00 03/30/25 11:21 Vancomycin 1.25gm/250ml (Peg) Premix IV 03/30/25 12:59 125 mls/hr ONCE ONE Administration Miscellaneous 1 each 03/30/25 11:00 03/30/25 11:40 Vancomycin Consult Request NOTAPPLIC 04/29/25 10:59 1 each CONSULT PHARMACY JUSTIN Administration Sodium Chloride 8 ml 03/30/25 08:45 Sodium Chloride 0.9% 10ml Vial IV 04/29/25 08:44 NEEDED PRN dilute pepcid Discontinued Medications Generic Name Dose Route Start Last Admin Trade Name Freq PRN Reason Stop Dose Admin Albuterol/Ipratropium 9 ml 03/30/25 08:38 03/30/25 08:47 Ipratropium/Albuterol 3 Ml Neb IH 03/30/25 08:39 9 ml ONCE ONE Administration Diphenhydramine HCl 25 mg 03/30/25 08:45 03/30/25 08:48 Diphenhydramine 50mg/Ml Vial IV 03/30/25 08:46 25 mg ONCE ONE Administration Famotidine 20 mg 03/30/25 08:45 03/30/25 08:47 Famotidine 20mg/2ml Vial IV 03/30/25 08:46 20 mg ONCE ONE Administration Cefepime HCl 2 gm/ Sodium 100 mls @ 200 mls/hr 03/30/25 08:55 03/30/25 09:10 Chloride IV 03/30/25 09:24 200 mls/hr ONCE ONE Administration Lactated Ringer's 1,710 mls @ 855 mls/hr 03/30/25 08:55 03/30/25 09:10 Lactated Ringer's 1000 Ml Bag 30 ml/kg infuse over 2 hr (1710 ml) 03/30/25 10:54 855 mls/hr IV Administration .Q2H ONE Iopamidol 75 ml 03/30/25 09:57 03/30/25 09:58 Iopamidol-370 (76%);100ml Bottle IV 03/30/25 09:58 75 ml ONCE ONE Administration Methylprednisolone Sodium Succinate 125 mg 03/30/25 08:38 03/30/25 08:48 Methylprednisolone Sod Succ 125mg Vial IV 03/30/25 08:39 125 mg ONCE ONE Administration Sodium Chloride 50 ml 03/30/25 09:57 03/30/25 09:58 0.9 % Sodium Chloride 50 Ml Vial IV 03/30/25 09:58 50 ml ONCE ONE Administration Sodium Chloride 10 ml 03/30/25 09:57 03/30/25 09:58 Sodium Chloride 0.9% 10ml Syr (Rad Only) IV 03/30/25 09:58 10 ml ONCE ONE Administration ORDERS Category Date Time Status CT angio chest PE protocol Stat Cat Scan 03/30/25 09:42 Completed Complete Blood Count Auto Diff Stat Lab 03/30/25 08:25 Completed Comprehensive Metabolic Panel Stat Lab 03/30/25 08:25 Completed D-Dimer Stat Lab 03/30/25 08:25 Completed NT Pro Brain Natriuretic Pep. Stat Lab 03/30/25 08:25 Completed PT INR [Prothrombin Time INR] Stat Lab 03/30/25 08:25 Completed PTT [Activated Partial Thrombo Time] Stat Lab 03/30/25 08:25 Completed Troponin I Q3H Lab 03/30/25 11:45 Ordered Troponin I Q3H Lab 03/30/25 14:45 Ordered Troponin I Stat Lab 03/30/25 08:25 Completed UA [Urinalysis and Microscopic] Stat Lab 03/30/25 09:55 Completed Blood Culture Stat Micro 03/30/25 09:09 Received VBG [Venous Blood Gas] Stat RT 03/30/25 08:25 Completed HEART Score History (anamnesis): Slightly suspicious ECG: Normal Age: >65 years Risk factors: 3 or more risk factors Troponin: </= normal limit HEART Score: 4 Medical Decision Narrative: 65-year-old female presenting with shortness of breath. Patient has history of hypertension, hyperlipidemia, type 2 diabetes, longstanding smoking history with no formal diagnosis of COPD still smoking 1/2 pack/day. She states that she was started on a new antibiotic for urinary tract infection yesterday, 03/29, does not remember the name of it. States that she has been short of breath since that time. Denies rash, chest pain, vomiting, diarrhea, palpitations. Does state that she has been feeling short of breath that is exertional and nonpositional. No tongue or throat swelling. Cough is nonproductive, which is new. History was obtained via conversation with patient and family. On arrival, patient hemodynamically stable, alert, oriented x4, appropriate, GCS 15, moving all extremities spontaneously, pupils equal and reactive to light. Full physical exam performed and significant for well-appearing female in no acute distress. Tachycardic and not tachypneic, speaking in full sentences. Lungs are quiet and diminished diffusely bilaterally, no focal sounds that I can hear. Cardiac exam without murmurs gallops or rubs, but she is tachycardic. No lower extremity edema. Pulses equal and symmetric in upper and lower extremities. Differential includes COPD exacerbation, hypercapnic versus hypoxemic respiratory failure, bronchitis, pneumonia, pneumothorax, ACS, [place], CHF, among others. Patient placed on continuous cardiac monitoring and continuous pulse ox with initial blood pressure 109/72, heart rate 110, saturation 80% on 2 L nasal cannula. Independent interpretation of EKG shows sinus tachycardia 114 bpm MA 156, QRS 93, QTc 407. No acute ischemic change. Patient was given supplemental oxygen, DuoNebs, Solu-Medrol for symptomatic management and correction of underlying abnormalities. Patient also given Benadryl, Pepcid and a patient concern for reaction. Workup independently interpreted and significant for white count of 22,000 with neutrophilia and monocyte elevated count. D-dimer elevated at 0.85. Patient's VBG with pH 7.32/CO2 46/bicarb 23/lactate 1.5. Nonactionable chemistry, troponin and BNP negative. On independent interpretation of imaging, mild emphysematous change and inflammatory changes, with some groundglass opacity right upper lobe, no obvious focal consolidation. See radiology read for full review of final results. On reevaluation, patient resting comfortably. Took some convincing, but patient agreeable to stay to clear blood cultures in the setting of pneumonia, concern for bacteremia and sepsis. Tissue perfusion reassessment performed within 3 hours, patient mentating, following commands, good capillary refill and hemodynamically stable. Hospital medicine contacted and case was discussed at length for admission. Agreeable. Given patient presentation, workup, history, this most likely represents pneumonia, sepsis. Because patient high risk for clinical decompensation, deemed appropriate for inpatient admission. Results were relayed to patient who voiced understanding and patient was agreeable to inpatient admission and management. Patient was admitted to the hospital for further definitive management. Insulation Engineman disclaimer Much of this encounter note is an electronic principal archaeologist spoken language to printed text. Electronic principal archaeologist of the spoken language may permit errors. Although I have reviewed the note, some errors may still exist. Critical Care Critical Care Time Critical Care Time: Yes (sepsis) Attestation: On 03/30/25, the high probability of a clinically significant, sudden or life threatening deterioration of the following system(s) required my full and direct attention, intervention and personal management. The time I documented below is in addition to time spent performing reported procedures but includes the following listed in this critical care notation. Total Time Total Critical Care Time: 35
[2025-03-30 09:02] LABS: Activated Partial Thrombo Time 27.8 seconds (22.8-30.6); INR 0.94 (0.9-1.1); Prothrombin Time 10.5 seconds (10.1-12.5)
[2025-03-30 09:04] LABS: NT Pro Brain Natriuretic Pep. 96.9 pg/mL (0-125); Troponin I < 0.01 ng/ml (0.00-0.034)
[2025-03-30] MEDS: LACTATED RINGERS 1000ML 1,710 ML 855 ML IV (09:10)
[2025-03-30] MEDS: CEFEPIME HCL 2 GM in 0.9 % SODIUM CHLORIDE 100 ML IV ×2 (09:10→17:16)
[2025-03-30 09:15] LABS: D-Dimer 0.85 ug/mL (0.0-0.5)
--- NOTE | 2025-03-30 09:42 | CT_ITS ---
FINAL REPORT TECHNIQUE: The patient was injected with IV contrast. Axial images were obtained through the chest in a PE protocol. 3-D reconstruction images were also performed. Individualized dose reduction techniques using automated exposure control or adjustment of the MA and/or KV according to patient's size were employed. CLINICAL HISTORY: elevated dimer, tachycardia, hypotension FINDINGS: Mediastinal vasculature is adequately opacified. No pulmonary artery filling defects are identified to suggest PE. There is no aortic dissection. There is some mural thrombus within the lumen of the aorta at the level of the diaphragmatic hiatus. There is no axillary adenopathy. There are a multitude of small mediastinal nodes. Nodes measure up to 1.3 cm. The heart size is normal. There is no pericardial or pleural effusion. Limited images of the upper abdomen shows the gallbladder to be absent. There is a small focus of airspace opacity in the periphery of the right middle lobe well-seen on 62 of series 5. IMPRESSION: No pulmonary embolus or dissection. Small focus of airspace opacity in the right middle lobe, probably due to a small focus of pneumonia. Follow-up CT in 1 month could confirm resolution. Reviewed, Interpreted and Dictated by Wayne Garcia MD Transcribed by Peace Garza Authenticated and [facility]
[2025-03-30] MEDS: IOPAMIDOL-370 (76%);100ML BOTTLE 75 ML IV (09:58)
[2025-03-30] MEDS: 0.9 % SODIUM CHLORIDE 50 ML VIAL IV (09:58)
[2025-03-30] MEDS: SODIUM CHLORIDE 0.9% 10ML SYR (RAD ONLY) 10 ML IV (09:58)
[2025-03-30 10:00] LABS: Microscopic, Urine URINE MICROSCOPIC (MICROSCOPIC)
[2025-03-30 10:02] LABS: Appearance,Urine CLEAR (Clear); Bilirubin,Urine Negative (Negative); Blood, Urine Negative (Negative); Color,Urine YELLOW (Yellow); Glucose,Urine (UA) 3+ (Negative); Ketones,Urine 1+ (Negative); Leukocyte Esterase,Urine Negative (Negative); Nitrate,Urine Negative (Negative); PH,Urine 5.5 (5.0-8.5); Protein,Urine Negative (Negative); Specific Gravity, Urine 1.015 (1.005-1.030); Urobilinogen,Urine 0.2 EU/dl (0.2)
[2025-03-30 10:11] LABS: Squamous Epithelial Cell,Urine Occasional #/hpf (0-5); WBC,Urine Occasional #/hpf (0-3)
[2025-03-30 10:12] LABS: Bacteria,Urine Trace /lpf
--- NOTE | 2025-03-30 10:45 | PC.NURSE ---
attempted to call hospitalist for admission
[2025-03-30] MEDS: VANCOMYCIN/WATER FOR INJ (PEG) 1.25 GM/250 ML PIGGYBACK IV (11:21)
--- NOTE | 2025-03-30 11:28 | PC.NURSE ---
attempted to call hospitalist again for admission. stated he would call back
[2025-03-30] MEDS: VANCOMYCIN CONSULT REQUEST 1 EACH NOTAPPLIC (11:40)
--- NOTE | 2025-03-30 11:50 | PC.NURSE ---
called house sup for bed
--- NOTE | 2025-03-30 11:55 | EXP.HP ---
History of Present Illness *Admission Date: 03/30/25 *Reason for visit:: Short of breath *History of present illness: Ms. Grant is a 65-year-old female who smokes a pack a day. Has a history of hypertension, diabetes, hyperlipidemia. Presented to the ER with complaint of worsening shortness of breath over the past 24 hours. Was seen yesterday at the walk-in clinic for concern for UTI. Transition to new antibiotics and started feeling short of breath with exertion and more ill today. Denies rash, chest pain, vomiting, diarrhea, swelling of her mouth. Does not normally wear oxygen. Found to be hypoxic on presentation and tachycardic above 90. Initial workup initiated with O2 sats of 80% on room air. Responding to 4 L oxygen with improvement above 90%. Heart rate in the 100s. White count of 22. Meeting sepsis criteria. Chest imaging obtained showing right middle lobe pneumonia. Administered DuoNebs, broad-spectrum antibiotics, Solu-Medrol in the ED. Medicine consulted for admission and further management. Of note, chest imaging also shows moderate mediastinal lymphadenopathy. Pleasant and interactive on exam. Daughter and granddaughter at bedside. Denies any chest pain at this time. Appears more comfortable on 4 L oxygen. Able to give good history. [facility] Disclaimer: The information contained in this section may have been updated after the patient was seen, as this information can be updated by other users. Medical History UTI (urinary tract infection) Surgical History Hx of cholecystectomy Family History Other Heart attack Lung cancer Stroke Social History Smoking Status: Current every day smoker alcohol intake: never substance use type: denies use current occupational status: employed and retired Travel in the last 8 weeks?: None caffeine: No Have you lived/traveled outside US in past 30 days?: No Contact w/someone who lives/traveled outside US past 30 days?: No Exposure to someone with infectious disease in past 14 days?: No Do you have a fever (greater than 100.4 F or 38 C)?: No Have you tested positive for COVID-19?: No Exposed to someone with COVID-19 in past 14 days?: No Do you have a sore throat?: No Do you have a cough?: No Do you have any weakness?: No Do you have any diarrhea?: No Are you experiencing any unusual bleeding?: No Do you have any muscle aches/pain?: No Do you have any abdominal pain?: No Are you experiencing loss of taste or smell?: No Other Medical History Have you received the Flu Vaccine for this season: No Have you received the Pneumonia Vaccine: Yes Review of Systems Review of Systems Review of systems (narrative): 14 point review of systems performed, pertinent positives and negatives as per HPI Meds Home Medications and Allergies Home Medications ?Medication ?Instructions ?Recorded ?Confirmed ?Type naproxen sodium 220 mg tablet 220 mg PO Q8H 07/28/19 03/30/25 History (Aleve) albuterol sulfate 90 mcg/actuation 1 puff inhalation Q12 PRN soa 04/20/24 03/30/25 History aerosol inhaler losartan 50 mg tablet 50 mg PO DAILY #90 tabs 11/16/24 03/30/25 Rx ofloxacin 0.3 % ear drops 10 drp otic (ear) DAILY 7 days #10 12/01/24 03/30/25 Rx mL gabapentin 100 mg capsule 200 mg (2 x 100 mg) PO DAILY #60 12/29/24 03/30/25 Rx caps dapagliflozin propanediol 5 mg 5 mg PO DAILY #90 tabs 12/31/24 03/30/25 Rx tablet (Farxiga) sitagliptin phosphate 100 mg 100 mg PO DAILY #90 tabs 12/31/24 03/30/25 Rx tablet (Januvia) nitrofurantoin 100 mg PO Q12H 7 days #14 caps 03/29/25 03/30/25 Rx monohydrate/macrocrystals 100 mg capsule New Prescriptions to Start Prescriptions: Allergies Allergy/AdvReac Type Severity Reaction Status Date / Time Sulfa (Sulfonamide Allergy Unknown SICK Verified 03/29/25 10:21 Antibiotics) Exam Data for Last 24 hours Vital signs and Labs for Last 24 Hours: Temp Pulse Resp BP Pulse Ox O2 Del Method O2 Flow Rate 98.2 F 119 H 16 144/95 H 95 Nasal Cannula 2 03/30/25 08:24 03/30/25 11:00 03/30/25 11:00 03/30/25 11:00 03/30/25 11:00 03/30/25 08:31 03/30/25 08:31 Laboratory Results - last 24 hr 03/30/25 08:25: WBC 22.3 H*, RBC 4.83, Hgb 15.2, Hct 47.4 H, MCV 98.1, MCH 31.5 H, MCHC 32.1, RDW 12.8, Plt Count 233, MPV 10.5 H, Neut % (Auto) 89.2 H, Lymph % (Auto) 3.6 L, [place] % (Auto) 5.3, Eos % (Auto) 1.0, Baso % (Auto) 0.4, Neut # (Auto) 19.9 H, Lymph # (Auto) 0.8, [place] # (Auto) 1.2 H, Eos # (Auto) 0.2, Baso # (Auto) 0.1, PT 10.5, INR 0.94, APTT 27.8, D-Dimer 0.85 H, VBG pH 7.32, VBG pCO2 46.1, VBG pO2 23.3 L, VBG HCO3 23.3, VBG Total CO2 24.7, VBG O2 Saturation 42.7 L, VBG Base Excess -2.7 L, VBG Lactic Acid 1.5, Sodium 140, Potassium 4.2, Chloride 107, Carbon Dioxide 27, Anion Gap 10.2, BUN 16, Creatinine 0.90, Estimated Creat Clear 65, Estimated GFR 62, Est GFR ( Amer) 76, Glucose 192 H, Calcium 9.1, Total Bilirubin 0.6, AST 26, ALT 19, Alkaline Phosphatase 116, Troponin I < 0.01, NT-Pro-B Natriuret Pep 96.9, Total Protein 7.3, Albumin 4.1, Globulin 3.2, Albumin/Globulin Ratio 1.3 03/30/25 09:55: Urine Color Yellow, Urine Appearance Clear, Urine pH 5.5, Ur Specific [place] 1.015, Urine Protein Negative, Urine Glucose (UA) 3+, Urine Ketones 1+, Urine Blood Negative, Urine Nitrate Negative, Urine Bilirubin Negative, Urine Urobilinogen 0.2, Ur Leukocyte Esterase Negative, Urine RBC None, Urine WBC Occasional, Ur Squamous Epith Cells Occasional, Urine Bacteria Trace I & O for Last 24 hours: Intake & Output 03/27/25 03/28/25 03/29/25 03/30/25 23:59 23:59 23:59 23:59 Weight 74.843 kg Constitutional Constitutional: mild distress, average body habitus, chronically ill appearing and cooperative *Routine HEENT Exam Head: Present normocephalic Eye: Present EOMI and PERRL ENT: Present mucous membranes moist *Routine Neck Exam Neck: Present supple; Absent lymphadenopathy *Routine Respiratory Exam Respiratory: Present prolonged expiratory phase, rhonchi, wheezes and crackles; Absent accessory muscle use or respiratory distress Comments: Adventitious sounds in right lung field. *Routine Cardiovascular Exam Cardiovascular: Present RRR *Routine Abdominal Exam Abdominal: Present soft and normoactive bowel sounds; Absent tenderness *Routine Rectal Exam Rectal:: deferred *Routine Genitalia Exam Genitalia:: deferred *Routine Extremities Exam Extremities: Absent cyanosis, clubbing or edema *Routine Skin Exam Skin: Present warm; Absent rash *Routine Neurological Exam Neurological: Present alert, oriented X3 and moving all extremities; Absent altered mental status Assessment and Plan *Assessment and plan (1) Pneumonia: Status: Acute Category: Medical Code(s): J18.9 - Pneumonia, unspecified organism (2) Sepsis: Status: Acute Category: Medical Code(s): A41.9 - Sepsis, unspecified organism (3) UTI (urinary tract infection): Status: Acute Qualifiers: Hematuria presence: with hematuria Urinary tract infection type: site unspecified Qualified Code(s): N39.0 - Urinary tract infection, site not specified; R31.9 - Hematuria, unspecified Category: Medical Code(s): N39.0 - Urinary tract infection, site not specified (4) Acute hypoxemic respiratory failure: Status: Acute Category: Medical Code(s): J96.01 - Acute respiratory failure with hypoxia (5) Tobacco use disorder: Status: Acute Category: Medical Code(s): F17.200 - Nicotine dependence, unspecified, uncomplicated (6) Type 2 diabetes mellitus with peripheral neuropathy: Status: Acute Category: Medical Code(s): E11.42 - Type 2 diabetes mellitus with diabetic polyneuropathy (7) Hypertension: Status: Acute Category: Medical Code(s): I10 - Essential (primary) hypertension (8) Hyperlipidemia: Status: Acute Category: Medical Code(s): E78.5 - Hyperlipidemia, unspecified Plan 65-year-old female who presents with shortness of breath. Found to have pneumonia on chest CT along with lymphadenopathy. Meeting sepsis criteria with leukocytosis, tachycardia, infection on exam. Discussed case with ER physician, request admission for further management. I agreed to admit for further care. Still requiring 4 L oxygen. Initiated on broad-spectrum antibiotics with vancomycin and cefepime. Necessitating inpatient care. Problems addressed as follows: Sepsis Pneumonia Acute hypoxemic respiratory failure - Chest imaging per my review with CT showing right middle lobe airspace disease. Has moderate lymphadenopathy in the mediastinal regions. White count of 22,000. Tachycardic above 110. - Received DuoNebs and steroids in the ER along with cefepime and vancomycin. Continue cefepime every 8 hours and vancomycin IV. Monitor for toxicity - Continue DuoNebs every 6 hours scheduled - Supplemental oxygen as needed, goal sats greater 90%. Currently on 4 L. Wean as tolerated - Hold on further steroids at this time with active infection - Consulted pulmonology, will evaluate patient in the morning - Unclear the etiology of her mediastinal lymph nodes. Peripheral smear pending. Will need repeat imaging in 1 month - Status post sepsis bolus in the ED Elevated troponins: Slight bump in troponin to 0.07. Suspect type II NSTEMI given the stress of pneumonia and treatment. Will monitor on telemetry. Consider cardiac eval in the morning. Asymptomatic with no chest pain at this time Diabetes - Unsure her last A1c. Ordered for the morning. Continue dapagliflozin 5 mg daily and sitagliptin 100 mg daily - Glucose 190s on admission. Initiate sliding scale insulin with fingersticks ACHS Hypertension: Continue home losartan 50 mg daily Neuropathy: Continue gabapentin 200 mg daily as needed DNR Lovenox 40 mg subcu daily Diabetic diet
--- NOTE | 2025-03-30 12:03 | P.CONPHA_ITS ---
Pharmacy Consult Date: 03/30/25 Time: 12:04 Referring provider: DR GR Reason for Consult:: VANCOMYCIN DOSING CONSULT Allergies Allergy/AdvReac Type Severity Reaction Status Date / Time Sulfa (Sulfonamide Allergy Unknown SICK Verified 03/29/25 10:21 Antibiotics) Home Medications ?Medication ?Instructions ?Recorded ?Confirmed ?Type naproxen sodium 220 mg tablet 220 mg PO Q8H 07/28/19 03/29/25 History (Aleve) albuterol sulfate 90 mcg/actuation inhalation 04/20/24 03/29/25 History aerosol inhaler cyclobenzaprine 5 mg tablet 5 mg PO HS PRN muscle spasm #30 04/20/24 03/29/25 Rx tabs losartan 50 mg tablet 50 mg PO DAILY #90 tabs 11/16/24 03/29/25 Rx ofloxacin 0.3 % ear drops 10 drp otic (ear) DAILY 7 days #10 12/01/24 03/29/25 Rx mL gabapentin 100 mg capsule 200 mg (2 x 100 mg) PO DAILY #60 12/29/24 03/29/25 Rx caps dapagliflozin propanediol 5 mg 5 mg PO DAILY #90 tabs 12/31/24 03/29/25 Rx tablet (Farxiga) sitagliptin phosphate 100 mg 100 mg PO DAILY #90 tabs 12/31/24 03/29/25 Rx tablet (Januvia) fluconazole 150 mg tablet 150 mg PO Q3D 1 dose #1 tab 03/29/25 03/29/25 Rx nitrofurantoin 100 mg PO Q12H 7 days #14 caps 03/29/25 03/29/25 Rx monohydrate/macrocrystals 100 mg capsule New Prescriptions to Start Prescriptions: Height: 1.65 m Weight: 74.843 kg Laboratory Results:: Laboratory Results - last 24 hr 03/30/25 08:25: WBC 22.3 H*, RBC 4.83, Hgb 15.2, Hct 47.4 H, MCV 98.1, MCH 31.5 H, MCHC 32.1, RDW 12.8, Plt Count 233, MPV 10.5 H, Neut % (Auto) 89.2 H, Lymph % (Auto) 3.6 L, [place] % (Auto) 5.3, Eos % (Auto) 1.0, Baso % (Auto) 0.4, Neut # (Auto) 19.9 H, Lymph # (Auto) 0.8, [place] # (Auto) 1.2 H, Eos # (Auto) 0.2, Baso # (Auto) 0.1, PT 10.5, INR 0.94, APTT 27.8, D-Dimer 0.85 H, VBG pH 7.32, VBG pCO2 46.1, VBG pO2 23.3 L, VBG HCO3 23.3, VBG Total CO2 24.7, VBG O2 Saturation 42.7 L, VBG Base Excess -2.7 L, VBG Lactic Acid 1.5, Sodium 140, Potassium 4.2, Chloride 107, Carbon Dioxide 27, Anion Gap 10.2, BUN 16, Creatinine 0.90, Estimated Creat Clear 65, Estimated GFR 62, Est GFR ( Amer) 76, Glucose 192 H, Calcium 9.1, Total Bilirubin 0.6, AST 26, ALT 19, Alkaline Phosphatase 116, Troponin I < 0.01, NT-Pro-B Natriuret Pep 96.9, Total Protein 7.3, Albumin 4.1, Globulin 3.2, Albumin/Globulin Ratio 1.3 03/30/25 09:55: Urine Color Yellow, Urine Appearance Clear, Urine pH 5.5, Ur Specific [place] 1.015, Urine Protein Negative, Urine Glucose (UA) 3+, Urine Ketones 1+, Urine Blood Negative, Urine Nitrate Negative, Urine Bilirubin Negative, Urine Urobilinogen 0.2, Ur Leukocyte Esterase Negative, Urine RBC None, Urine WBC Occasional, Ur Squamous Epith Cells Occasional, Urine Bacteria Trace Medical History: Medical History (Updated 03/30/25 @ 11:47 by Gamal Montoya MD) UTI (urinary tract infection) Assessment and Plan Assessment and plan all Dx Assessment and Plan for all problems:: Pharmacokinetic dosing service Objective: Age: 65 yo Serum creatinine: 0.9 mg/dL Height: 65.0 Inches Weight (kg): 74.843 Diagnosis: PNEUMONIA Assessment: IBW (kg): 57.00 Dosing wt(kg): 74.843 Estimated Creatinine clearance (ml/min): 54.6 CRCL method: Cockcroft and Gault using ibw(default). Drug selected: Vancomycin Vd (liters): 52.4 (factor used: 0.7 L/kg) Jerrell (hr-1): 0.050 Half life (hrs): 13.86 CLvanco=?? 2.620 L/hr Recommended dose: 1250 mg Interval: 24 hrs Infusion time (hrs): 2.0 Predicted peak (mcg/mL): 32.5 Predicted trough (mcg/mL): 10.82 Total body weight is being used for vancomycin dosing. Recommendations: Give Vancomycin 1250 mg q 24 hrs with an expected Cpeak of 32.5 mcg/ml and an expected Ctrough of 10.82 mcg/ml AUC 0-24 /MIKEY Data: MIKEY 0.5 mcg/mL:?? AUC/MIKEY:? 954.2 MIKEY 1.0 mcg/mL:?? AUC/MIKEY:? 477.1 --------- MIKEY 1.5 mcg/mL:?? AUC/MIKEY:? 318.1 MIKEY 2.0 mcg/mL:?? AUC/MIKEY:? 238.5 Thank you for the consult
--- NOTE | 2025-03-30 12:36 | PC.NURSE ---
arrived by stretcher from ED
[2025-03-30 12:40] LABS: Troponin I 0.05 ng/ml (0.00-0.034)
[2025-03-30 15:11] LABS: Troponin I 0.07 ng/ml (0.00-0.034)
[2025-03-30 17:06] LABS: POC Glucose,Bedside 301 (70-110)
[2025-03-30] MEDS: humaLOG 100 UNITS/ML 10ML VIAL (SSI) SUBCUT (17:13)
[2025-03-30] MEDS: IPRATROPIUM/ALBUTEROL 3 ML NEB IH ×2 (18:11→23:18)
[2025-03-30] MEDS: ENOXAPARIN 40MG/0.4ML SYRINGE 40 MG SUBCUT (18:15)
[2025-03-31] VITALS: O2SAT 96
[2025-03-31 00:13] VITALS: PULSE 90
[2025-03-31 00:16] VITALS: PULSE 91
[2025-03-31] MEDS: CEFEPIME HCL 2 GM in 0.9 % SODIUM CHLORIDE 100 ML IV ×2 (01:23→08:56)
[2025-03-31 03:24] LABS: POC Glucose,Bedside 155 (70-110)
[2025-03-31 04:00] VITALS: BP 139/76; PULSE 82; RESP 16; TEMP 36.8; O2SAT 100; BMI 26.7
--- NOTE | 2025-03-31 05:51 | PC.NURSE ---
Pt A&OX4. Pt oxygen was been weaned throughout the shift and if currently on 1L nc. She has ambulated room independently. She has received IV abx. No complaints at this time, call light within reach.
[2025-03-31 06:21] LABS: POC Glucose,Bedside 135 (70-110)
[2025-03-31 06:42] LABS: Basophils # 0.1 K/mm3 (0-0.2); Basophils % 0.2 % (0.1-2.0); Hematocrit 44.2 % (37.0-47.0); Hemoglobin 14.5 g/dL (12.2-16.2); Immature Granulocytes # 0.11 10^3uL; Immature Granulocytes % 0.5 %; Lymphocytes # 1.4 K/mm3 (0.7-4.5); Lymphocytes % 6.8 % (10-50); Mean Corpuscular HGB Conc 32.8 g/dL (31.8-35.4); Mean Corpuscular Hemoglobin 31.9 pg (27.0-31.2); Mean Corpuscular Volume 97.1 fl (81-99); Mean Platelet Volume 11.1 fl (7.4-10.4); Monocytes # 1.3 K/mm3 (0.1-1.0); Monocytes % 6.5 % (1.7-9.3); Neutrophils # 17.4 K/mm3 (1.8-7.8); Nucleated Red Blood Cells # 0 10^3/uL; Nucleated Red Blood Cells % 0 %; Platelet Count 228 K/mm3 (142-424); Red Blood Count 4.55 M/mm3 (4.20-5.40); Red Cell Distribution Width 12.8 % (11.5-17.5); Red Cell Distribution Width-SD 46.1 fL; White Blood Count 20.3 K/mm3 (4.8-10.8)
[2025-03-31 07:28] LABS: Alanine Aminotransferase 16 U/L (12-78); Albumin Level 3.9 g/dl (3.5-5.0); Albumin/Globulin Ratio 1.3 (1.1-1.8); Alkaline Phosphatase 99 U/L (38-126); Anion Gap 8.9 mEq/L (5-15); Aspartate Amino Transferase 23 U/L (14-36); Bilirubin,Total 0.4 mg/dl (0.2-1.3); Blood Urea Nitrogen 14 mg/dl (7-17); Calcium 8.8 mg/dl (8.4-10.2); Carbon Dioxide 24 mmol/L (22.0-30.0); Chloride 111 mmol/L (98-107); Creatinine Clearance Estimated 63 mL/min (50-200); Estimated Glomerular Filt Rate 123 ml/min (>60); GFR (African American) 149 ML/MIN (>60); Globulin 3.1 g/dL (1.3-3.2); Glucose 122 mg/dl (74-100); Magnesium 1.8 mg/dl (1.6-2.3); Potassium 3.9 mmoL/L (3.5-5.1); Sodium 140 mmol/L (136-145)
[2025-03-31 08:00] VITALS: BP 135/76; PULSE 82; RESP 18; TEMP 36.7; O2SAT 95
--- NOTE | 2025-03-31 08:32 | ECG_ITS ---
APPROVED REPORT Exam: Resting ECG HR:82 bpm ECG Measurements Heart Rate 82 AXES NH 155 P 58 QRSd 97 QRS 77 QT 371 T 53 QTc 409 Conclusion SINUS RHYTHM NORMAL ECG UNCONFIRMED REPORT Electronically signed by : Denver Hanson MD 04/01/2025 07:31:11
[2025-03-31] MEDS: DAPAGLIFLOZIN PROPANEDIOL 10 MG TABLET 5 MG PO (08:56)
[2025-03-31] MEDS: IRBESARTAN 75MG TABLET 75 MG PO (08:56)
[2025-03-31] MEDS: SITAGLIPTIN 50MG TABLET 100 MG PO (08:56)
[2025-03-31] MEDS: GABAPENTIN 100MG CAPSULE 200 MG PO (08:57)
--- NOTE | 2025-03-31 09:40 | P.CONS_ITS ---
History of Present Illness History of present illness: Ms. Chung a 65-year-old female current smoker around 18-onyg-wale smoking history presented presented to the ER complaining of worsening rash and dizziness after taking medications for her UTI initially needing 4 L nasal oxygen supplementation pulmonary was called for further evaluation and management. [facility] Disclaimer: The information contained in this section may have been updated after the patient was seen, as this information can be updated by other users. Medical History (Updated 03/31/25 @ 12:23 by Kaleb Pereira MD) Pulmonary emphysema Lung nodule Mediastinal lymphadenopathy UTI (urinary tract infection) Surgical History Hx of cholecystectomy Family History Other Heart attack Lung cancer Stroke Social History Smoking Status: Current every day smoker alcohol intake: never substance use type: denies use current occupational status: employed and retired Travel in the last 8 weeks?: None caffeine: No Have you lived/traveled outside US in past 30 days?: No Contact w/someone who lives/traveled outside US past 30 days?: No Exposure to someone with infectious disease in past 14 days?: No Do you have a fever (greater than 100.4 F or 38 C)?: No Have you tested positive for COVID-19?: No Exposed to someone with COVID-19 in past 14 days?: No Do you have a sore throat?: No Do you have a cough?: No Do you have any weakness?: No Do you have any diarrhea?: No Are you experiencing any unusual bleeding?: No Do you have any muscle aches/pain?: No Do you have any abdominal pain?: No Are you experiencing loss of taste or smell?: No Review of Systems Constitutional Constitutional: Denies anorexia, Reports body ache(s) and Reports fatigue Eyes Eyes: Denies eye discharge, Denies dry eyes, Denies irritation and Denies itchy eyes ENT Ears, Nose, Mouth, and Throat: Denies epistaxis, Denies facial pain, Denies lip swelling and Denies throat swelling *Cardiovascular Cardiovascular: Denies dyspnea and Denies dyspnea on exertion *Respiratory Respiratory: Denies change in phlegm color, Denies chest congestion, Denies cough, Denies dyspnea, Denies dyspnea on exertion, Denies excessive phlegm production and Denies wheezing *Gastrointestinal Gastrointestinal: Denies abdominal pain, Denies belching and Denies cramping *Musculoskeletal Musculoskeletal: Denies back pain and Denies myalgias Psychiatric Psychiatric: Denies homicidal ideation and Denies suicidal ideation Endocrine Endocrine: Reports fatigue and Denies heat intolerance Hematologic/Lymphatic Hematologic/Lymphatic: Denies easy bleeding and Denies lymphadenopathy Allergic/Immunologic Allergic/Immunologic: Denies itchy eyes, Denies lip swelling, Denies throat swelling and Denies wheezing Pulmonology Exam Inpatient Vital signs and Labs for Last 24 Hours: Temp Pulse Resp BP Pulse Ox O2 Del Method O2 Flow Rate 98.0 F 82 18 135/76 95 Room Air 1 03/31/25 08:00 03/31/25 08:00 03/31/25 08:00 03/31/25 08:00 03/31/25 08:00 03/31/25 08:00 03/31/25 05:00 Laboratory Results - last 24 hr 03/30/25 09:55: Urine Color Yellow, Urine Appearance Clear, Urine pH 5.5, Ur Specific [place] 1.015, Urine Protein Negative, Urine Glucose (UA) 3+, Urine Ketones 1+, Urine Blood Negative, Urine Nitrate Negative, Urine Bilirubin Negative, Urine Urobilinogen 0.2, Ur Leukocyte Esterase Negative, Urine RBC None, Urine WBC Occasional, Ur Squamous Epith Cells Occasional, Urine Bacteria Trace 03/30/25 12:04: Troponin I 0.05 H 03/30/25 14:40: Troponin I 0.07 H 03/30/25 16:48: POC Glucose 301 H* 03/30/25 20:50: POC Glucose 155 H 03/31/25 05:23: WBC 20.3 H*, RBC 4.55, Hgb 14.5, Hct 44.2, MCV 97.1, MCH 31.9 H, MCHC 32.8, RDW 12.8, Plt Count 228, MPV 11.1 H, Neut % (Auto) 86.0 H, Lymph % (Auto) 6.8 L, [place] % (Auto) 6.5, Eos % (Auto) 0.0 L, Baso % (Auto) 0.2, Neut # (Auto) 17.4 H, Lymph # (Auto) 1.4, [place] # (Auto) 1.3 H, Eos # (Auto) 0.0, Baso # (Auto) 0.1, Sodium 140, Potassium 3.9, Chloride 111 H, Carbon Dioxide 24, Anion Gap 8.9, BUN 14, Creatinine 0.50 L D, Estimated Creat Clear 63, Estimated GFR 123, Est GFR ( Amer) 149 D, Glucose 122 H D, Calcium 8.8, Magnesium 1.8, Total Bilirubin 0.4, AST 23, ALT 16, Alkaline Phosphatase 99, Total Protein 7.0, Albumin 3.9, Globulin 3.1, Albumin/Globulin Ratio 1.3 03/31/25 06:12: POC Glucose 135 H I & O for Labs for Last 24 Hours: Intake & Output 03/28/25 03/29/25 03/30/25 03/31/25 23:59 23:59 23:59 23:59 Intake Total 515 / 665 360 / 360 Output Total 0 / 0 0 / 0 Balance 515 / 665 360 / 360 Weight 160 lb 14.4 oz 160 lb 11.2 oz Microbiology Reports for the Last 24 Hours: Microbiology 03/30/25 09:00 Blood Blood Culture - Preliminary NO GROWTH AFTER 24 HOURS 03/30/25 09:09 Blood Blood Culture - Preliminary NO GROWTH AFTER 24 HOURS Constitutional: Present no acute distress Head: Present normocephalic and atraumatic ENT: Present normal exam, normal oropharynx and mucous membranes moist Neck: Present normal inspection and full ROM Respiratory: Present normal respiratory effort and able to speak in complete sentences; Absent prolonged expiratory phase, respiratory distress, wheezes, crackles or diminished air movement Cardiac: Present S1/S2, Tachycardia and radial pulses present GI: Present soft and distention; Absent tenderness or guarding Rectal (female): Present deferred (female): Present deferred Skin: Present intact; Absent cyanosis or jaundice Neuro: Present alert, awake and oriented x 3 Extremities: Present normal inspection; Absent clubbing or cyanosis Psychiatric: Present normal affect and cooperative Meds Home Medications and Allergies Home Medications ?Medication ?Instructions ?Recorded ?Confirmed ?Type naproxen sodium 220 mg tablet 220 mg PO Q8H 07/28/19 03/30/25 History (Aleve) losartan 50 mg tablet 50 mg PO DAILY #90 tabs 11/16/24 03/30/25 Rx gabapentin 100 mg capsule 200 mg (2 x 100 mg) PO DAILY #60 12/29/24 03/31/25 Rx caps dapagliflozin propanediol 5 mg 5 mg PO DAILY #90 tabs 12/31/24 03/30/25 Rx tablet (Farxiga) sitagliptin phosphate 100 mg 100 mg PO DAILY #90 tabs 12/31/24 03/30/25 Rx tablet (Januvia) nitrofurantoin 100 mg PO Q12H 7 days #14 caps 03/29/25 03/30/25 Rx monohydrate/macrocrystals 100 mg capsule albuterol sulfate 90 mcg/actuation 1 puff inhalation Q6HP PRN soa 30 03/31/25 Rx aerosol inhaler days #8.5 grams cefdinir 300 mg capsule 300 mg PO BID #12 caps 03/31/25 Rx New Prescriptions to Start Prescriptions: albuterol sulfate Devon Laird cefdinir Devon Laird Allergies Allergy/AdvReac Type Severity Reaction Status Date / Time Sulfa (Sulfonamide Allergy Unknown SICK Verified 03/29/25 10:21 Antibiotics) Results Laboratory Findings 03/31/25 05:23 03/31/25 05:23 PT/INR, D-dimer PT 10.5 seconds (10.1-12.5) 03/30/25 08:25 INR 0.94 (0.9-1.1) 03/30/25 08:25 D-Dimer 0.85 ug/mL (0.0-0.5) H 03/30/25 08:25 Abnormal lab findings: Abnormal Labs 03/30/25 03/30/25 03/30/25 08:25 12:04 14:40 WBC 22.3 H* Hct 47.4 H MCH 31.5 H MPV 10.5 H Neut % (Auto) 89.2 H Lymph % (Auto) 3.6 L Eos % (Auto) Neut # (Auto) 19.9 H [place] # (Auto) 1.2 H D-Dimer 0.85 H VBG pO2 23.3 L VBG O2 Saturation 42.7 L VBG Base Excess -2.7 L Chloride Creatinine Glucose 192 H POC Glucose Troponin I 0.05 H 0.07 H 03/30/25 03/30/25 03/31/25 16:48 20:50 05:23 WBC 20.3 H* Hct MCH 31.9 H MPV 11.1 H Neut % (Auto) 86.0 H Lymph % (Auto) 6.8 L Eos % (Auto) 0.0 L Neut # (Auto) 17.4 H [place] # (Auto) 1.3 H D-Dimer VBG pO2 VBG O2 Saturation VBG Base Excess Chloride 111 H Creatinine 0.50 L D Glucose 122 H D POC Glucose 301 H* 155 H Troponin I 03/31/25 06:12 WBC Hct MCH MPV Neut % (Auto) Lymph % (Auto) Eos % (Auto) Neut # (Auto) [place] # (Auto) D-Dimer VBG pO2 VBG O2 Saturation VBG Base Excess Chloride Creatinine Glucose POC Glucose 135 H Troponin I Assessment and Plan *Assessment and plan (1) Tobacco use disorder: Status: Acute Category: Medical Code(s): F17.200 - Nicotine dependence, unspecified, uncomplicated (2) Pneumonia: Status: Acute Category: Medical Code(s): J18.9 - Pneumonia, unspecified organism (3) Mediastinal lymphadenopathy: Status: Acute Category: Medical Code(s): R59.0 - Localized enlarged lymph nodes (4) Lung nodule: Status: Acute Category: Medical Code(s): R91.1 - Solitary pulmonary nodule (5) Pulmonary emphysema: Status: Acute Category: Medical Code(s): J43.9 - Emphysema, unspecified Plan Ms. Grant is a 65-year-old female current smoker around 55-vsvv-itod smoking history presented presented to the ER complaining of worsening rash and dizziness after taking medications for her UTI initially needing 4 L nasal oxygen supplementation pulmonary was called for further evaluation and management. She is a current smoker, greater than 53-bljf-pfmc smoking history. Denies any significant respiratory symptoms at baseline. Never used any inhalers before. Afebrile. Hemodynamically stable. Neutrophilic predominant leukocytosis CTA upon admission no evidence of pulmonary embolism. Very minimal less than 1 cm area in the right middle lobe concerning for airspace disease. No other consolidative changes noted. No pleural effusions. Station 7 lymphadenopathy noted. No hilar lymphadenopathy noted. Emphysematous changes noted. Most recent urine cultures, E. coli pansensitive. Blood cultures on this admission negative so far. Plan: Cefdinir to complete a total of 5-day course at 300 mg twice daily from pulmonary standpoint for concerning right middle lobe airspace disease, Albuterol 4 times daily as needed Follow-up in 4 to 6 weeks with a PFT walk testing Smoking cessation # For the concerning right middle lobe opacity and associated lymphadenopathy, will follow as an outpatient basis with 3-month CT chest without contrast that will be ordered on her clinic visit.
[2025-03-31 09:50] VITALS: PULSE 87; RESP 18
[2025-03-31] MEDS: SODIUM CHLORIDE 3% 15ML NEB 3 ML IH (09:53)
--- NOTE | 2025-03-31 10:09 | PC.NURSE ---
RESP CARE NOTE: Sputum specimen sent to lab.
[2025-03-31 10:19] LABS: Hemoglobin A1C 6.7 % (4.0-6.0)
[2025-03-31] MEDS: VANCOMYCIN/WATER FOR INJ (PEG) 1.25 GM/250 ML PIGGYBACK IV (11:32)
[2025-03-31 11:45] LABS: POC Glucose,Bedside 94 (70-110)
--- NOTE | 2025-03-31 11:54 | EXP.DC.SUM ---
General Admission date:: 03/30/25 Discharge date: 03/31/25 HPI HPI HPI: Ms. Grant is a 65-year-old female who smokes a pack a day. Has a history of hypertension, diabetes, hyperlipidemia. Presented to the ER with complaint of worsening shortness of breath over the past 24 hours. Was seen yesterday at the walk-in clinic for concern for UTI. Transition to new antibiotics and started feeling short of breath with exertion and more ill today. Denies rash, chest pain, vomiting, diarrhea, swelling of her mouth. Does not normally wear oxygen. Found to be hypoxic on presentation and tachycardic above 90. Initial workup initiated with O2 sats of 80% on room air. Responding to 4 L oxygen with improvement above 90%. Heart rate in the 100s. White count of 22. Meeting sepsis criteria. Chest imaging obtained showing right middle lobe pneumonia. Administered DuoNebs, broad-spectrum antibiotics, Solu-Medrol in the ED. Medicine consulted for admission and further management. Of note, chest imaging also shows moderate mediastinal lymphadenopathy. Pleasant and interactive on exam. Daughter and granddaughter at bedside. Denies any chest pain at this time. Appears more comfortable on 4 L oxygen. Able to give good history. Hospital Course Hospital Course Hospital Course: [id number] female who presents with shortness of breath. Found to have pneumonia on chest CT along with lymphadenopathy. Meeting sepsis criteria with leukocytosis, tachycardia, infection on exam. Discussed case with ER physician, request admission for further management. I agreed to admit for further care. Requiring 4 L oxygen on admission. Initiated on broad-spectrum antibiotics. Showed good improvement. Weaned to room air by morning of discharge. White count showing slight improvement. Pulmonology consulted to assist with care. Recommended empiric antibiotic course and stable to discharge home with close follow-up. Problems addressed as follows: Sepsis Pneumonia Acute hypoxemic respiratory failure - Chest imaging per my review with CT showing right middle lobe airspace disease. Has moderate lymphadenopathy in the mediastinal regions. White count of 22,000 on admission with tachycardia above 110. Meeting sepsis criteria with pneumonia and oxygen requirement. Started on DuoNebs, steroids, broad-spectrum antibiotics with cefepime and vancomycin. Pulmonology consulted to assist with care. Initially on 4 L oxygen to maintain sats above 90%. Weaned to room air by morning of discharge. Pulmonology recommend de-escalating to cefdinir to complete 7-day course pneumonia. Discontinue steroids at discharge. Overall doing well. Given her improvement, will have follow-up as an outpatient as she needs repeat imaging of her chest due to her mediastinal lymphadenopathy. Likely reactive. Pulmonology to follow with repeat images. - Peripheral smear obtained, shows reactive lymphadenopathy. No neoplastic process on smear UTI: Of note, and urine specimen from 03/29 positive for E. coli. Will complete course with cefdinir as above Elevated troponins: Slight bump in troponin to 0.07. Suspect type II NSTEMI given the stress of pneumonia and treatment. Consider cardiac eval as an outpatient due to asymptomatic with no chest pain at this time. EKG with no ST elevations Diabetes: A1c 6.7. Continue home regimen of dapagliflozin 5 mg daily and sitagliptin 100 mg daily. Morning glucose 122 on day of discharge. Hypertension: Continue home losartan 50 mg daily Neuropathy: Continue gabapentin 200 mg daily as needed Exam Data for Last 24 hours Vital signs and Labs for Last 24 Hours: Temp Pulse Resp BP Pulse Ox O2 Del Method O2 Flow Rate 98.0 F 87 18 135/76 95 Room Air 1 03/31/25 08:00 03/31/25 09:50 03/31/25 09:50 03/31/25 08:00 03/31/25 08:00 03/31/25 10:54 03/31/25 05:00 Laboratory Results - last 24 hr 03/30/25 12:04: Troponin I 0.05 H 03/30/25 14:40: Troponin I 0.07 H 03/30/25 16:48: POC Glucose 301 H* 03/30/25 20:50: POC Glucose 155 H 03/31/25 05:23: WBC 20.3 H*, RBC 4.55, Hgb 14.5, Hct 44.2, MCV 97.1, MCH 31.9 H, MCHC 32.8, RDW 12.8, Plt Count 228, MPV 11.1 H, Neut % (Auto) 86.0 H, Lymph % (Auto) 6.8 L, Dixon % (Auto) 6.5, Eos % (Auto) 0.0 L, Baso % (Auto) 0.2, Neut # (Auto) 17.4 H, Lymph # (Auto) 1.4, Dixon # (Auto) 1.3 H, Eos # (Auto) 0.0, Baso # (Auto) 0.1, Sodium 140, Potassium 3.9, Chloride 111 H, Carbon Dioxide 24, Anion Gap 8.9, BUN 14, Creatinine 0.50 L D, Estimated Creat Clear 63, Estimated GFR 123, Est GFR ( Amer) 149 D, Glucose 122 H D, Hemoglobin A1c 6.7 H, Calcium 8.8, Magnesium 1.8, Total Bilirubin 0.4, AST 23, ALT 16, Alkaline Phosphatase 99, Total Protein 7.0, Albumin 3.9, Globulin 3.1, Albumin/Globulin Ratio 1.3 03/31/25 06:12: POC Glucose 135 H 03/31/25 11:38: POC Glucose 94 I & O for Last 24 hours: Intake & Output 03/28/25 03/29/25 03/30/25 03/31/25 23:59 23:59 23:59 23:59 Intake Total 515 / 665 360 / 360 Output Total 0 / 0 0 / 0 Balance 515 / 665 360 / 360 Weight 72.983 kg 72.892 kg Microbiology Reports for the Last 24 Hours: Microbiology 03/30/25 09:00 Blood Blood Culture - Preliminary NO GROWTH AFTER 24 HOURS 03/30/25 09:09 Blood Blood Culture - Preliminary NO GROWTH AFTER 24 HOURS Constitutional Constitutional: no acute distress, average body habitus, chronically ill appearing and cooperative *Routine HEENT Exam Head: Present normocephalic Eye: Present EOMI and PERRL ENT: Present mucous membranes moist *Routine Neck Exam Neck: Present supple; Absent lymphadenopathy *Routine Respiratory Exam Respiratory: Present CTA bilaterally; Absent rhonchi, wheezes or crackles *Routine Cardiovascular Exam Cardiovascular: Present RRR *Routine Abdominal Exam Abdominal: Present soft and normoactive bowel sounds; Absent tenderness *Routine Rectal Exam Patient deferred: visual exam *Routine Exam Patient deferred: external exam *Routine Extremities Exam Extremities: Absent cyanosis, clubbing or edema *Routine Skin Exam Skin: Present intact and warm; Absent rash *Routine Neurological Exam Neurological: Present alert and oriented X3 Results Data Completed and Pending Labs on day of discharge: Labs from last 24 hours 03/31/25 03/31/25 03/31/25 11:38 06:12 05:23 WBC 20.3 H* RBC 4.55 Hgb 14.5 Hct 44.2 MCV 97.1 MCH 31.9 H MCHC 32.8 RDW 12.8 Plt Count 228 MPV 11.1 H Neut % (Auto) 86.0 H Lymph % (Auto) 6.8 L Dixon % (Auto) 6.5 Eos % (Auto) 0.0 L Baso % (Auto) 0.2 Neut # (Auto) 17.4 H Lymph # (Auto) 1.4 Dixon # (Auto) 1.3 H Eos # (Auto) 0.0 Baso # (Auto) 0.1 Sodium 140 Potassium 3.9 Chloride 111 H Carbon Dioxide 24 Anion Gap 8.9 BUN 14 Creatinine 0.50 L D Estimated Creat Clear 63 Estimated GFR 123 Est GFR ( Amer) 149 D Glucose 122 H D POC Glucose 94 135 H Hemoglobin A1c 6.7 H Calcium 8.8 Magnesium 1.8 Total Bilirubin 0.4 AST 23 ALT 16 Alkaline Phosphatase 99 Troponin I Total Protein 7.0 Albumin 3.9 Globulin 3.1 Albumin/Globulin Ratio 1.3 03/30/25 03/30/25 03/30/25 20:50 16:48 14:40 WBC RBC Hgb Hct MCV MCH MCHC RDW Plt Count MPV Neut % (Auto) Lymph % (Auto) Dixon % (Auto) Eos % (Auto) Baso % (Auto) Neut # (Auto) Lymph # (Auto) Dixon # (Auto) Eos # (Auto) Baso # (Auto) Sodium Potassium Chloride Carbon Dioxide Anion Gap BUN Creatinine Estimated Creat Clear Estimated GFR Est GFR ( Amer) Glucose POC Glucose 155 H 301 H* Hemoglobin A1c Calcium Magnesium Total Bilirubin AST ALT Alkaline Phosphatase Troponin I 0.07 H Total Protein Albumin Globulin Albumin/Globulin Ratio 03/30/25 12:04 WBC RBC Hgb Hct MCV MCH MCHC RDW Plt Count MPV Neut % (Auto) Lymph % (Auto) Dixon % (Auto) Eos % (Auto) Baso % (Auto) Neut # (Auto) Lymph # (Auto) Dixon # (Auto) Eos # (Auto) Baso # (Auto) Sodium Potassium Chloride Carbon Dioxide Anion Gap BUN Creatinine Estimated Creat Clear Estimated GFR Est GFR ( Amer) Glucose POC Glucose Hemoglobin A1c Calcium Magnesium Total Bilirubin AST ALT Alkaline Phosphatase Troponin I 0.05 H Total Protein Albumin Globulin Albumin/Globulin Ratio Preliminary micro results at discharge 03/30/25 09:00 Blood Culture - Preliminary Blood NO GROWTH AFTER 24 HOURS 03/30/25 09:09 Blood Culture - Preliminary Blood NO GROWTH AFTER 24 HOURS DS: Diagnosis Discharge Diagnosis (1) Pneumonia: Status: Acute Code(s): J18.9 - Pneumonia, unspecified organism (2) Sepsis: Status: Resolved Code(s): A41.9 - Sepsis, unspecified organism (3) UTI (urinary tract infection): Status: Acute Code(s): N39.0 - Urinary tract infection, site not specified Qualifiers: Hematuria presence: with hematuria Urinary tract infection type: site unspecified Qualified Code(s): N39.0 - Urinary tract infection, site not specified; R31.9 - Hematuria, unspecified (4) Acute hypoxemic respiratory failure: Status: Resolved Code(s): J96.01 - Acute respiratory failure with hypoxia (5) Tobacco use disorder: Status: Acute Code(s): F17.200 - Nicotine dependence, unspecified, uncomplicated (6) Type 2 diabetes mellitus with peripheral neuropathy: Status: Acute Code(s): E11.42 - Type 2 diabetes mellitus with diabetic polyneuropathy (7) Hypertension: Status: Acute Code(s): I10 - Essential (primary) hypertension (8) Hyperlipidemia: Status: Acute Code(s): E78.5 - Hyperlipidemia, unspecified Meds Home Medications and Allergies Home Medications ?Medication ?Instructions ?Recorded ?Confirmed ?Type naproxen sodium 220 mg tablet 220 mg PO Q8H 07/28/19 03/30/25 History (Aleve) losartan 50 mg tablet 50 mg PO DAILY #90 tabs 11/16/24 03/30/25 Rx gabapentin 100 mg capsule 200 mg (2 x 100 mg) PO DAILY #60 12/29/24 03/31/25 Rx caps dapagliflozin propanediol 5 mg 5 mg PO DAILY #90 tabs 12/31/24 03/30/25 Rx tablet (Farxiga) sitagliptin phosphate 100 mg 100 mg PO DAILY #90 tabs 12/31/24 03/30/25 Rx tablet (Januvia) nitrofurantoin 100 mg PO Q12H 7 days #14 caps 03/29/25 03/30/25 Rx monohydrate/macrocrystals 100 mg capsule albuterol sulfate 90 mcg/actuation 1 puff inhalation Q6HP PRN soa 30 03/31/25 Rx aerosol inhaler days #8.5 grams cefdinir 300 mg capsule 300 mg PO BID #12 caps 03/31/25 Rx New Prescriptions to Start Prescriptions: albuterol sulfate Devon Laird cefdinir Devon Laird Allergies Allergy/AdvReac Type Severity Reaction Status Date / Time Sulfa (Sulfonamide Allergy Unknown SICK Verified 03/29/25 10:21 Antibiotics) Discharge Plan Disposition Patient Disposition: Home, Self-Care Condition: Fair Follow up Plan Follow up with: No Vinson APRN [Nurse Practitioner, Cardiology] - 1 week Referral Note: Please call office tomorrow morning for follow up appointment Luis Antonio Gorman MD [Primary Care Provider, Medical] - 04/07/25 1:30 pm Kaleb Pereira MD [Physician, Pulmonology] - Enter time for follow up Referral Note: Please call office tomorrow morning for follow up appointment Prescriptions/Medication Reconciliation: New cefdinir 300 mg capsule 300 mg PO BID Qty: 12 0RF Continued naproxen sodium [Aleve] 220 mg tablet 220 mg PO Q8H nitrofurantoin monohyd/m-cryst 100 mg capsule 100 mg PO Q12H 7 Days Qty: 14 0RF Rx Instructions: must administer with a meal/food losartan 50 mg tablet 50 mg PO DAILY Qty: 90 1RF gabapentin 100 mg capsule 200 mg PO DAILY Qty: 60 2RF dapagliflozin propanediol [Farxiga] 5 mg tablet 5 mg PO DAILY Qty: 90 1RF Januvia 100 mg tablet 100 mg PO DAILY Qty: 90 1RF Changed albuterol sulfate 90 mcg/actuation HFA aerosol inhaler 1 puff inhalation Q6HP PRN (Reason: soa) 30 Days Qty: 8.5 0RF Patient Comments: INHALE TWO PUFFS BY MOUTH EVERY 6 HOURS NEEDED FOR wheezing Problem Reconciliation Problems Reviewed?: Yes Patient Discharge Instructions ACTIVITY: Continue current activity Patient Instructions: Sepsis, DI for Pneumonia -- Adult, Stop Light Pneumonia, Stop Light Infection Print Language: Macedonian Providers Primary Care Provider: Luis Antonio Gorman Admit Provider: Devon Laird Attending Provider: Devon Laird
[2025-04-01 17:56] LABS: Peripheral Smear Review Scanned Result
--- NOTE | 2025-04-04 09:07 | PC.NURSE ---
blood cultures no growth day 4, forwarded to hospitalist group
== END 2025-03-31 13:49 | disposition home or self-care (01) ==
LOC: ER 11:47 → 2ND 12:04
PROVIDERS: Admitting Provider Internal Medicine Adolescent Medicine; Emergency Provider Emergency Medicine; PCP Internal Medicine; Visit Provider Internal Medicine Adolescent Medicine
DX: J18.9 Pneumonia, unspecified organism (principal); A41.9 Sepsis, unspecified organism; N39.0 Urinary tract infection, site not specified; B96.20 Unspecified Escherichia coli [E. coli] as the cause of diseases classified elsewhere; E11.40 Type 2 diabetes mellitus with diabetic neuropathy, unspecified; Z79.84 Long term (current) use of oral hypoglycemic drugs; I10 Essential (primary) hypertension; E78.5 Hyperlipidemia, unspecified; R91.1 Solitary pulmonary nodule; J43.9 Emphysema, unspecified; J96.01 Acute respiratory failure with hypoxia; R42 Dizziness and giddiness; R21 Rash and other nonspecific skin eruption; R79.89 Other specified abnormal findings of blood chemistry; R59.0 Localized enlarged lymph nodes; F17.210 Nicotine dependence, cigarettes, uncomplicated; Z79.899 Other long term (current) drug therapy; Z79.51 Long term (current) use of inhaled steroids; Z88.2 Allergy status to sulfonamides
CPT/HCPCS: 96361; 96365; 96366 ×2; 96375; 96376 ×2; 36415; 71275; 80053; 81001; 82803; 82962; 83036; 83735; 83880; 84484; 85025; 85378; 85610; 85730; 87040; 87070; 87205; 93005; 94640; 94760; 99291; G0378; J0692; J1200; J1650; J2919; J3372; J7120; Q9967

== ENCOUNTER 2025-07-12 09:45 | Outpatient (CLI) | payer MEDICARE, MEDICAID, SELFPAY ==
[2025-07-12 16:07] LABS: Hematocrit 51.6 % (37.0-47.0); Hemoglobin 16.1 g/dL (12.2-16.2); Immature Granulocytes % 0.4 %; Mean Corpuscular HGB Conc 31.2 g/dL (31.8-35.4); Mean Corpuscular Hemoglobin 30.7 pg (27.0-31.2); Mean Corpuscular Volume 98.5 fl (81-99); Nucleated Red Blood Cells % 0 %; Platelet Count 235 K/mm3 (142-424); Red Blood Count 5.24 M/mm3 (4.20-5.40); Red Cell Distribution Width-SD 46.2 fL; White Blood Count 11.4 K/mm3 (4.8-10.8)
[2025-07-12 16:39] LABS: Alanine Aminotransferase 16 U/L (12-78); Albumin Level 4.2 g/dl (3.5-5.0); Albumin/Globulin Ratio 1.4 (1.1-1.8); Alkaline Phosphatase 107 U/L (38-126); Anion Gap 13.8 mEq/L (5-15); Aspartate Amino Transferase 26 U/L (14-36); Bilirubin,Total 0.7 mg/dl (0.2-1.3); Blood Urea Nitrogen 12 mg/dl (7-17); Calcium 9.3 mg/dl (8.4-10.2); Carbon Dioxide 27 mmol/L (22.0-30.0); Chloride 104 mmol/L (98-107); Cholesterol 271 mg/dl (140-200); Creatinine,Serum 0.60 mg/dl (0.52-1.04); Estimated Glomerular Filt Rate 100 ml/min (>60); GFR (African American) 121 ML/MIN (>60); Globulin 3.1 g/dL (1.3-3.2); Glucose 68 mg/dl (74-100); HDL Cholesterol 43 mg/dl (40-60); Potassium 4.8 mmoL/L (3.5-5.1); Sodium 140 mmol/L (136-145); Total Protein,Serum 7.3 g/dl (6.3-8.2); Triglycerides 154 mg/dl (30-150)
[2025-07-12 18:38] LABS: Hemoglobin A1C 6.6 % (4.0-6.0)
== END 2025-07-12 23:59 ==
LOC: LAB.DROPOF 07-13 10:08
PROVIDERS: PCP Internal Medicine; Visit Provider Internal Medicine
DX: E11.42 Type 2 diabetes mellitus with diabetic polyneuropathy (principal); I10 Essential (primary) hypertension; Z78.9 Other specified health status; E78.5 Hyperlipidemia, unspecified
CPT/HCPCS: 80053; 80061; 82043; 82570; 83036; 85025